=== PATIENT | female | born 1950 | race African-American/Black ===

== ENCOUNTER → 2017-05-20 | Outpatient (CLI) | payer MEDICARE ==
--- NOTE | 2017-05-20 18:33 | WOMENS IMAGING REPORT ---
EXAM DESCRIPTION: 3D SCREENING MAMMO BILAT COMPLETED DATE/TIME: 05/20/2017 12:54 pm REASON FOR STUDY: ROUTINE SCREENING; Z12.31 Z12.31 ENCNTR SCREEN MAMMOGRAM FOR MALIGNANT NEOPLASM O F TIGRE COMPARISON: Multiple since 2009 TECHNIQUE: Standard craniocaudal and mediolateral oblique views of each breast recorded using digita l acquisition and breast tomosynthesis. LIMITATIONS: None. FINDINGS: RIGHT BREAST MASSES: In the upper outer quadrant about 15 cm from the nipple, a 3 cm mammographic mass is present worrisome for malignancy. This requires further evaluation with cone compression views and ultrasoun d. There are borderline enlarged right axillary lymph nodes at the edge of the field of view. Ultra sound of the axilla should also be performed. CALCIFICATIONS: No new or suspicious calcifications. ARCHITECTURAL DISTORTION: None. DEVELOPING DENSITY: None. ASYMMETRY: None noted. OTHER: No other significant findings. LEFT BREAST MASSES: No suspicious masses. CALCIFICATIONS: No new or suspicious calcifications. ARCHITECTURAL DISTORTION: None. DEVELOPING DENSITY: None. ASYMMETRY: None noted. OTHER: No other significant findings. Read with the assistance of CAD. .[facility] - R2 Cenova Version 1.3 .[facility] Imaging - R2 Cenova Version 1.3 .[facility] Imaging - R2 Cenova Version 2.4 .[facility] - R2 Cenova Version 2.4 .[facility] - R2 Volumetric Weigher Version 9.2 IMPRESSION: Right breast mass far upper outer quadrant worrisome for malignancy. This requires furt her evaluation with cone compression views, 90 mediolateral view and right breast ultrasound. Ultra sound should also include the right axilla. BREAST DENSITY: b. There are scattered areas of fibroglandular density. BIRAD: 0 Incomplete: Needs Additional Imaging Evaluation and/or prior Mammograms for Comparison. RECOMMENDATION: RECOMMENDED FOLLOW-UP: Right breast diagnostic mammograms and ultrasound The patient will be contacted for additional imaging. COMMENT: The patient has been notified of the results by letter per MQSA requirements. Additional no tification policies are in place for contacting patient with suspicious or incomplete findings. Quality ID #225: The [employer] recommends an annual screening mammogram for women aged 40 years or over. This facility utilizes a reminder system to ensure that all patients receive reminder letters, and/or direct phone calls for appointments. This includes reminders for routine scr eening mammograms, diagnostic mammograms, or other Breast Imaging Interventions when appropriate. Th is patient will be placed in the appropriate reminder system. The [employer] (ACR) has developed recommendations for screening MRI of the breast s in certain patient populations, to be used in conjunction with mammography. Breast MRI surveillanc e may be appropriate for women with more than 20% lifetime risk of developing breast cancer as deter mined by genetic testing, significant family history of the disease, or history of mantle radiation f or Hodgkins Disease. ACR Practice Guidelines 2008. DBT Technology DBT is a type of tomographic mammography. With conventional mammography, overlapping breast tissue ma y make lesions difficult to detect, even with good compression. DBT uses an x-ray tube that rotates a round the breast, taking images at different angles. These images are then combined to create thin sl ices of the breast that the radiologist can view as a 3D reconstruction. The Stand In unit can perform full-field digital mammograms (2D imaging); or DBT (3D imaging); or both, in a combination mode that quickly performs both the mammogram and the tomosynthesis scan while the breast is still compressed. PQRS 6045F: Fluoroscopic imaging is not utilized for breast tomosynthesis. TECHNICAL DOCUMENTATION: FINDING NUMBER: (1) ASSESSMENT: (1) JOB ID: [id number] [employer]- All Rights Reserved
== END ==
LOC: WI 11:48
PROVIDERS: ATTEND Internal Medicine
DX: Z12.31 Encounter for screening mammogram for malignant neoplasm of breast (principal); N63.11 Unspecified lump in the right breast, upper outer quadrant
CPT/HCPCS: 77063; G0202; 77067

== ENCOUNTER → 2017-06-17 | Outpatient (CLI) | payer MEDICARE ==
--- NOTE | 2017-06-17 15:48 | WOMENS IMAGING REPORT ---
EXAM DESCRIPTION: RIGHT DIAGNOSTIC MAMMO W/CAD; U/S BREAST UNILAT LIMITED COMPLETED DATE/TIME: 06/17/2017 9:34 am; 06/17/2017 10:04 am REASON FOR STUDY: UNSPECIFIED LUMP; N63.11; RT BREAST; N63.11 N63.11 UNSPECIFIED LUMP IN THE RIGHT BREAST, UPPER OUTER GLENN COMPARISON: Multiple since 2007 TECHNIQUE: Cone compression craniocaudal and mediolateral oblique images of the breast recorded with digital acquisition. Additional right breast 90 mediolateral view and exaggerated craniocaudad view Right breast ultrasound was also performed LIMITATIONS: None. FINDINGS: BREAST: Right MASSES: In the right upper outer quadrant, a 5 x 4.5 x 2.5 cm mammographic mass is present with ill-d efined borders. This is subsequently shown at ultrasound to represent a solid mass, suspicious for m alignancy. CALCIFICATIONS: No new or suspicious calcifications. ARCHITECTURAL DISTORTION: None. DEVELOPING DENSITY: None. ASYMMETRY: None noted. OTHER: No other significant findings. Read with the assistance of CAD. .[facility] - R2 Cenova Version 1.3 .[facility] Imaging - R2 Cenova Version 1.3 .[facility] Imaging - R2 Cenova Version 2.4 .[facility] [place] [place] - R2 Cenova Version 2.4 .[facility] - R2 Precision Jig Grinder Version 9.2 Right breast ultrasound: In the far right upper outer quadrant, a 5 x 4.5 x 2.5 cm mass is present with internal color flow, i ll-defined margins highly suspicious for malignancy. Ultrasound-guided core biopsy, post biopsy clip placement follow-up two-view mammogram recommended. Right axilla was imaged, there are enlarged right axillary lymph nodes, 3 x 2 cm in size and 1.2 x 1. 3 cm in size. These are worrisome for malignant involvement IMPRESSION: Mass right upper outer quadrant breast with enlarged right axillary lymph nodes highly s uspicious for malignancy. Ultrasound-guided core biopsy of the mass and 1 of the lymph nodes in the axilla is recommended, with post biopsy follow-up two-view mammogram BREAST DENSITY: b. There are scattered areas of fibroglandular density. BIRAD: 5 Highly suggestive of malignancy. Appropriate action should be taken. RECOMMENDATION: RECOMMENDED FOLLOW UP: Right breast ultrasound-guided core biopsy of the mass in the upper outer quadrant and right axillary lymph nodes SPECIFIC INTERVENTION/IMAGING/CONSULTATION RECOMMENDED:As above COMMUNICATION:These results were discussed with the patient at the time of the encounter. She unders tands the need for right breast and axillary lymph node biopsy and is amenable to biopsy performed by me at [facility]. Dr. Mendez was also notified of these results COMMENT: The patient has been notified of the results by letter per SA requirements. Additional no tification policies are in place for contacting patient with suspicious or incomplete findings. Quality ID #225: The [employer] recommends an annual screening mammogram for women aged 40 years or over. This facility utilizes a reminder system to ensure that all patients receive reminder letters, and/or direct phone calls for appointments. This includes reminders for routine scr eening mammograms, diagnostic mammograms, or other Breast Imaging Interventions when appropriate. Th is patient will be placed in the appropriate reminder system. The [employer] (ACR) has developed recommendations for screening MRI of the breast s in certain patient populations, to be used in conjunction with mammography. Breast MRI surveillanc e may be appropriate for women with more than 20% lifetime risk of developing breast cancer as deter mined by genetic testing, significant family history of the disease, or history of mantle radiation f or Hodgkins Disease. ACR Practice Guidelines 2008. TECHNICAL DOCUMENTATION: FINDING NUMBER: (1) ASSESSMENT: (1) JOB ID: [id number] [employer]- All Rights Reserved
--- NOTE | 2017-06-17 15:48 | WOMENS IMAGING REPORT ---
EXAM DESCRIPTION: RIGHT DIAGNOSTIC MAMMO W/CAD; U/S BREAST UNILAT LIMITED COMPLETED DATE/TIME: 06/17/2017 9:34 am; 06/17/2017 10:04 am REASON FOR STUDY: UNSPECIFIED LUMP; N63.11; RT BREAST; N63.11 N63.11 UNSPECIFIED LUMP IN THE RIGHT BREAST, UPPER OUTER GLENN COMPARISON: Multiple since 2007 TECHNIQUE: Cone compression craniocaudal and mediolateral oblique images of the breast recorded with digital acquisition. Additional right breast 90 mediolateral view and exaggerated craniocaudad view Right breast ultrasound was also performed LIMITATIONS: None. FINDINGS: BREAST: Right MASSES: In the right upper outer quadrant, a 5 x 4.5 x 2.5 cm mammographic mass is present with ill-d efined borders. This is subsequently shown at ultrasound to represent a solid mass, suspicious for m alignancy. CALCIFICATIONS: No new or suspicious calcifications. ARCHITECTURAL DISTORTION: None. DEVELOPING DENSITY: None. ASYMMETRY: None noted. OTHER: No other significant findings. Read with the assistance of CAD. .[facility] - R2 Cenova Version 1.3 .[facility] Imaging - R2 Cenova Version 1.3 .[facility] Imaging - R2 Cenova Version 2.4 .[facility] - R2 Cenova Version 2.4 .[facility] - R2 Law Clerk Version 9.2 Right breast ultrasound: In the far right upper outer quadrant, a 5 x 4.5 x 2.5 cm mass is present with internal color flow, i ll-defined margins highly suspicious for malignancy. Ultrasound-guided core biopsy, post biopsy clip placement follow-up two-view mammogram recommended. Right axilla was imaged, there are enlarged right axillary lymph nodes, 3 x 2 cm in size and 1.2 x 1. 3 cm in size. These are worrisome for malignant involvement IMPRESSION: Mass right upper outer quadrant breast with enlarged right axillary lymph nodes highly s uspicious for malignancy. Ultrasound-guided core biopsy of the mass and 1 of the lymph nodes in the axilla is recommended, with post biopsy follow-up two-view mammogram BREAST DENSITY: b. There are scattered areas of fibroglandular density. BIRAD: 5 Highly suggestive of malignancy. Appropriate action should be taken. RECOMMENDATION: RECOMMENDED FOLLOW UP: Right breast ultrasound-guided core biopsy of the mass in the upper outer quadrant and right axillary lymph nodes SPECIFIC INTERVENTION/IMAGING/CONSULTATION RECOMMENDED:As above COMMUNICATION:These results were discussed with the patient at the time of the encounter. She unders tands the need for right breast and axillary lymph node biopsy and is amenable to biopsy performed by me at [facility]. Dr. Mendez was also notified of these results COMMENT: The patient has been notified of the results by letter per SA requirements. Additional no tification policies are in place for contacting patient with suspicious or incomplete findings. Quality ID #225: The [employer] recommends an annual screening mammogram for women aged 40 years or over. This facility utilizes a reminder system to ensure that all patients receive reminder letters, and/or direct phone calls for appointments. This includes reminders for routine scr eening mammograms, diagnostic mammograms, or other Breast Imaging Interventions when appropriate. Th is patient will be placed in the appropriate reminder system. The [employer] (ACR) has developed recommendations for screening MRI of the breast s in certain patient populations, to be used in conjunction with mammography. Breast MRI surveillanc e may be appropriate for women with more than 20% lifetime risk of developing breast cancer as deter mined by genetic testing, significant family history of the disease, or history of mantle radiation f or Hodgkins Disease. ACR Practice Guidelines 2008. TECHNICAL DOCUMENTATION: FINDING NUMBER: (1) ASSESSMENT: (1) JOB ID: [id number] [employer]- All Rights Reserved
== END ==
LOC: WI 08:52
PROVIDERS: ATTEND Internal Medicine
DX: N63.11 Unspecified lump in the right breast, upper outer quadrant (principal)
CPT/HCPCS: 76642

== ENCOUNTER → 2017-07-10 | Day surgery (SDC) | payer MEDICARE ==
[~2017-07-10] MED LIST: LIDOCAINE 2% INJ (20 MG/ML) 20 ML MDV ONE
--- NOTE | 2017-07-21 08:39 | WOMENS IMAGING REPORT ---
EXAM DESCRIPTION: U/S BREAST BX; RIGHT DIG DX MAMMO NO CHG; U/S BREAST BX EACH ADDT'L COMPLETED DATE/TIME: 07/10/2017 2:24 pm; 07/10/2017 2:09 pm; 07/10/2017 2:25 pm REASON FOR STUDY: RIGHT BREAST LUMP; S/P US RIGHT BREAST AND AXILLA FOR CLIP PLACEMENT; TWO BIOPSY S ITES N63.10 UNSPECIFIED LUMP IN THE RIGHT BREAST, UNSPECIFIED GLENN N63.11 UNSPECIFIED LUMP IN THE RI GHT BREAST, UPPER OUTER GLENN COMPARISON: Multiple since 2014 TECHNIQUE: The procedure was discussed with the patient and the patient agreed to proceed. Patient has a dominant mass in the right upper outer quadrant as well as an enlarged right axillary lymph nod e. Both areas were sampled. Right axillary lymph node: The patient was scanned and the area of interest in the right axilla. This correlates with the area of concern on prior imaging studies. This area was targeted for ultrasound-guided core biopsy. After sterile skin prep and 2.0 mL local lidocaine 1% for skin and deep tissue anesthesia, a 14 gauge coaxial core biopsy needle was used to obtain several cores of tissue from the lesion. Under ultras ound guidance, a ribbon clip was placed in the areas sampled. There were no immediate post-procedure complications. Right upper-outer quadrant mass: The patient was scanned and the area of interest in the upper outer quadrant right breast. This layo elates with the area of concern on prior imaging studies. This area was targeted for ultrasound-guide d core biopsy. After sterile skin prep and 2.0 mL local lidocaine 1% for skin and deep tissue anesthesia, a 14 gauge coaxial core biopsy needle was used to obtain several cores of tissue from the lesion. Under ultras ound guidance, a ribbon clip was placed in the areas sampled. There were no immediate post-procedure complications. MAMMOGRAM: Post-procedure two view mammogram was acquired in the digital mammogram suite. The clips w ere in the expected location. No significant hematoma. Pathology yields a diagnosis of invasive ductal carcinoma in the upper outer quadrant primary breast mass, metastatic ductal carcinoma in the right axillary lymph node sampled. Pathology is concordant. LIMITATIONS: None. FINDINGS: Ultrasound guided breast biopsy as described above. POST PROCEDURE MAMMOGRAMS FOR MARKER PLACEMENT: Yes IMPRESSION: ULTRASOUND-GUIDED CORE BIOPSY OF THE RIGHT BREAST YIELDS A DIAGNOSIS OF INVASIVE DUCTAL CARCINOMA AND A DOMINANT MASS RIGHT UPPER OUTER QUADRANT AND IN AN ENLARGED RIGHT AXILLARY LYMPH NODE . BI-RADS 6 Known biopsy-proven malignancy. Appropriate action should be taken. COMMENT: COMMUNICATION: THESE RESULTS WERE DISCUSSED WITH THE PATIENT 07/15/2017, 1600 HOURS. SHE UN DERSTANDS THIS IS A MALIGNANT DIAGNOSIS. PATIENT'S PRIMARY PHYSICIAN WAS ALSO NOTIFIED. Patient medication list reviewed: Yes- Quality ID# [id number]:Eligible professional attests to documenting i n the medical record they obtained, updated, or reviewed the patient's current medications. TECHNICAL DOCUMENTATION: JOB ID: [id number] [employer]- All Rights Reserved
== END ==
LOC: WI 12:59
PROVIDERS: ATTEND Internal Medicine
PROC: 0HBT3ZX Excision of Right Breast, Percutaneous Approach, Diagnostic (ICD-10-PCS; principal; 2017-07-10)
DX: C50.411 Malignant neoplasm of upper-outer quadrant of right female breast (principal); C77.3 Secondary and unspecified malignant neoplasm of axilla and upper limb lymph nodes
CPT/HCPCS: 88342 ×2; 88341 ×2; 88305 ×2; 19083; 19084; J3490

== ENCOUNTER → 2017-07-27 | Outpatient (CLI) | payer MEDICARE ==
--- NOTE | 2017-07-27 10:42 | RADIOLOGY REPORT (SQ) ---
EXAM DESCRIPTION: CT CHEST WITH; CT ABD/PELVIS WITH IV ONLY COMPLETED DATE/TIME: 07/27/2017 9:12 am REASON FOR STUDY: BREAST CA (C50.411) C50.411 MALIG NEOPLM OF UPPER-OUTER QUADRANT OF RIGHT FEMALE COMPARISON: CT angio chest 12/28/2012 Right breast ultrasound-guided biopsy 07/10/2017 CONTRAST TYPE AND DOSE: contrast/concentration: Isovue 370.00 mg/ml; Total Contrast Delivered: 100.0 ml; Total Saline Delivered: 72.0 ml RENAL FUNCTION: Creatinine 0.9 TECHNIQUE: CT scan of the chest performed using helical scanning technique with dynamic intravenous contrast injection. Images reviewed with lung, soft tissue and bone windows. Reconstructed coronal a nd sagittal MPR images reviewed. All images stored on PACS. CT scan of the abdomen and pelvis performed with intravenous and without oral contrastusing helical s gisella technique with dynamic intravenous contrast injection. Images reviewed with lung, soft tissu e and bone windows. Reconstructed coronal and sagittal MPR images reviewed. Delayed images for eval uation of the urinary system also acquired and evaluated. All images stored on PACS. All CT scanners at this facility use dose modulation, iterative reconstruction, and/or weight based d osing when appropriate to reduce radiation dose to as low as reasonably achievable (ALARA). [facility]: Dose Right [facility]: CareDose [facility]: Dose Right [facility]: Teradose 4D [facility]: Smart Vacation View RADIATION DOSE: CT Rad equipment meets quality standard of care and radiation dose reduction techniq ues were employed. CTDIvol: 20.6 - 29.7 mGy. DLP: 3731 mGy-cm. . LIMITATIONS: None. FINDINGS: CHEST: LUNGS AND PLEURA: Minimal bandlike scarring is present in the lingula and left lower lobe. Benign fo sandhya pleural thickening along the right minor fissure 4 mm in diameter axial image 63, of doubtful cli nical significance. No worrisome pulmonary nodules. No pleural effusion. No pneumothorax. HILAR AND MEDIASTINAL STRUCTURES: No identified masses or abnormal nodes. HEART AND VASCULAR STRUCTURES: No aneurysm or dissection. No central pulmonary emboli. No pericardi al effusion. HARDWARE: None. THYROID AND OTHER SOFT TISSUES: This thyroiditis is grossly unremarkable. Previously biopsied right lateral breast mass at the edge of the field of view on axial image 21. Th ere are enlarged right axillary lymph nodes 1 of which contains a biopsy clip and was shown to repres ent metastatic breast cancer. Largest lymph nodes are as follows: 3.2 cm diameter axial image 6 3.3 cm diameter axial image 11 2.2 cm diameter axial image 13 BONES: No significant finding. OTHER: No other significant finding. ABDOMEN AND PELVIS: LIVER: Normal size. No masses. No dilated ducts. SPLEEN: Normal size. No focal lesions. PANCREAS: No masses. No significant calcifications. No adjacent inflammation or peripancreatic fluid collections. Pancreatic duct not dilated. GALLBLADDER: Surgically absent ADRENAL GLANDS: No significant masses or asymmetry. RIGHT KIDNEY AND URETER: No solid masses. No significant calcification. No hydronephrosis or hydroure ter. LEFT KIDNEY AND URETER: No solid masses. No significant calcification. No hydronephrosis or hydrouret er. AORTA AND VESSELS: No aneurysm. No dissection. Renal arteries, SMA, celiac without stenosis. RETROPERITONEUM: No retroperitoneal adenopathy, hemorrhage or masses. BOWEL AND PERITONEAL CAVITY: No masses or inflammatory changes. No free fluid or peritoneal masses. APPENDIX: Not identified. No right lower quadrant inflammatory change ABDOMINAL WALL: No masses. No hernias. PELVIS: No mass or free fluid. Normal bladder. Fibroid uterus. Ovaries not enlarged. BONES: No significant or acute findings. OTHER: No other significant finding. IMPRESSION: Right lateral previously biopsied malignant breast mass with malignant right axillary ad enopathy. No CT evidence of metastatic disease to the abdomen or pelvis TECHNICAL DOCUMENTATION: JOB ID: [id number] Quality ID # [id number]: Final reports with documentation of one or more dose reduction techniques (e.g., Au tomated exposure control, adjustment of the mA and/or kV according to patient size, use of iterative reconstruction technique) 2010 [employer]- All Rights Reserved Reading location - IP/workstation name: [email or web address]
== END ==
LOC: RAD 08:24
PROVIDERS: ATTEND Internal Medicine Hematology & Oncology
DX: C50.411 Malignant neoplasm of upper-outer quadrant of right female breast (principal)
CPT/HCPCS: 71260; 74177; 82565

== ENCOUNTER → 2017-08-06 | Outpatient (CLI) | payer MEDICAID, MEDICARE ==
--- NOTE | 2017-08-07 14:37 | RADIOLOGY REPORT (SQ) ---
EXAM DESCRIPTION: NM MUGA REST COMPLETED DATE/TIME: 08/07/2017 2:27 pm REASON FOR STUDY: ENCTR FOR F/U EXAM AFTER COMPLETED TX FOR MALIGNANT CARLOTA (Z08), ENCTR FOR SC Z08 E NCNTR FOR FOLLOW-UP EXAM AFTER TRTMT FOR MALIGNANT NEOP COMPARISON: None. RADIONUCLIDE AND DOSE: 26.6 mCi technetium 99 M pyrophosphate. The route of agent administration: Intravenous TECHNIQUE: Following administration of the radionuclide, gated images of the heart are obtained. LIMITATIONS: The injection infiltrated and images are nondiagnostic. FINDINGS: Nondiagnostic images. IMPRESSION: Nondiagnostic study due to infiltration of the radiopharmaceutical. The study will be r epeated. TECHNICAL DOCUMENTATION: JOB ID: [id number] [employer]- All Rights Reserved Reading location - IP/workstation name: [email or web address]
== END ==
LOC: RAD 13:28
PROVIDERS: ATTEND Internal Medicine Hematology & Oncology
DX: Z13.6 Encounter for screening for cardiovascular disorders (principal); Z08 Encounter for follow-up examination after completed treatment for malignant neoplasm
CPT/HCPCS: 78472

== ENCOUNTER → 2017-08-11 | Outpatient (CLI) | payer MEDICAID, MEDICARE ==
--- NOTE | 2017-08-11 16:12 | RADIOLOGY REPORT (SQ) ---
EXAM DESCRIPTION: NM MUGA REST COMPLETED DATE/TIME: 08/11/2017 3:26 pm REASON FOR STUDY: ENCOUNTER FOR FOLLOW UP AFTER TREATMENT FOR MAL CARLOTA Z51.11 ENCOUNTER FOR ANTINEOP LASTIC CHEMOTHERAPY Z08 ENCNTR FOR FOLLOW-UP EXAM AFTER TRTMT FOR MALIGNANT NEOP COMPARISON: None. RADIONUCLIDE AND DOSE: 25.7 mCi technetium 99 M labeled red blood cells. The route of agent administration: Intravenous TECHNIQUE: Following administration of the radionuclide, gated images of the heart are obtained in t hree projections. Left ventricular functional analysis performed. LIMITATIONS: None. FINDINGS: LEFT VENTRICULAR FUNCTION: EJECTION FRACTION: 79%. END-DIASTOLIC VOLUME: 44 mL. END-SYSTOLIC VOLUME: 9 mL. WALL MOTION: No focal wall motion abnormalities. OTHER: No other significant finding. IMPRESSION: NORMAL CARDIAC MUGA STUDY. NORMAL LEFT VENTRICULAR FUNCTION WITH VALUES ABOVE. TECHNICAL DOCUMENTATION: JOB ID: [id number] [employer]- All Rights Reserved Reading location - IP/workstation name: [email or web address]
== END ==
LOC: RAD 13:37
PROVIDERS: ATTEND Internal Medicine Hematology & Oncology
DX: Z08 Encounter for follow-up examination after completed treatment for malignant neoplasm (principal); Z92.21 Personal history of antineoplastic chemotherapy; Z79.899 Other long term (current) drug therapy
CPT/HCPCS: 78472; A9560; Q9969

== ENCOUNTER → 2017-08-13 | Outpatient (CLI) | payer MEDICARE, MEDICAID ==
[~2017-08-13] MED LIST changes: +LIDOCAINE 1%/EPINEPHRINE INJ 20 ML VIAL ONE; -LIDOCAINE 2% INJ (20 MG/ML) 20 ML MDV ONE
--- NOTE | 2017-08-13 16:39 | XCELERA REPORT ---
[address] [address] Upper Extremity Venous Evaluation Name: CONNIE DE ANDA Age: 67 yrs Gender: Female : 1950 Patient Status: Outpatient Patient Location: Study Date: 08/13/2017 11:29 AM Procedure: Unilateral duplex scan of the right upper extremity veins was performed, including responses to compression and other maneuvers. Reason For Study: RUE SWELLING Ordering Physician: EMMANUELLE GAY Performed By: Sidney Jolly Right Side Venous Evaluation Multiple lymph nodes in upper right arm noted. Normal vessel filling wall to wall, compression and augmentation as well as Colour flow down to the forearm veins. Interpretation Summary Normal compression, patency, spontaneous and phasic flow of the right upper extremity veins. : EMMANUELLE GAY > Victorino Hess
== END ==
LOC: SP 11:04
PROVIDERS: ATTEND Internal Medicine Hematology & Oncology
DX: M79.89 Other specified soft tissue disorders (principal); I82.449 Acute embolism and thrombosis of unspecified tibial vein
CPT/HCPCS: 93971

== ENCOUNTER 2017-08-17 09:13 | Day surgery (SDC) | payer MEDICARE, MEDICAID ==
[~2017-08-17 09:13] MED LIST changes: +ACETAMINOPHEN 325 MG TABLET PO PRN; +CEFAZOLIN 1 GM/D5W RTU 1 GM/50 ML RTUPB IV PRN
[2017-08-17 09:52] LABS: HEMATOCRIT 39.9 % (36.0-47.0); HEMOGLOBIN 13.3 g/dL (12.0-15.5); MEAN CORPUSCULAR HEMOGLOBIN 29.1 pg (27.0-33.4); MEAN CORPUSCULAR HGB CONC 33.4 g/dL (32.0-36.0); MEAN CORPUSCULAR VOLUME 87 fl (80-97); PLATELET COUNT 227 10^3/uL (150-450); RED BLOOD COUNT 4.57 10^6/uL (3.72-5.28); RED CELL DISTRIBUTION WIDTH 14.1 % (11.5-14.0); WHITE BLOOD COUNT 5.7 10^3/uL (4.0-10.5)
[2017-08-17 10:10] LABS: POTASSIUM 3.8 mmol/L (3.6-5.0)
[2017-08-17] MEDS ORDERED: KETAMINE HCL INJ 500 MG/10 ML VIAL ONE (11:30)
[2017-08-17] MEDS ORDERED: LIDOCAINE 2% INJ-PF (20 MG/ML) 10 ML AMPUL ONE (11:30)
[2017-08-17] MEDS ORDERED: FENTANYL CITRATE INJ/PF 100 MCG/2 ML AMPUL ONE (11:30)
[2017-08-17] MEDS ORDERED: MIDAZOLAM 2 MG/2 ML INJ ONE (11:31)
[2017-08-17] MEDS ORDERED: PROPOFOL INJ 200 MG/20 ML VIAL IV ONE (11:31)
[2017-08-17] MEDS ORDERED: ONDANSETRON HCL INJ/PF 4 MG/2 ML SDV ONE (11:31)
[2017-08-17] MEDS ORDERED: OXYCODONE-ACETAMINOPHEN 5-325 MG TABLET PO PRN ×2 (12:12)
[2017-08-17] MEDS ORDERED: PROMETHAZINE HCL INJ 25 MG/1 ML VIAL IV PRN ×2 (12:12)
[2017-08-17] MEDS ORDERED: DIPHENHYDRAMINE HCL 50 MG/ML VIAL IV PRN (12:12)
[2017-08-17] MEDS ORDERED: MEPERIDINE HCL/PF INJ 25 MG/1 ML DISP.SYRIN IV PRN (12:12)
[2017-08-17] MEDS ORDERED: MORPHINE SULFATE 10 MG/ML INJ IV PRN (12:12)
[2017-08-17] MEDS ORDERED: FENTANYL CITRATE INJ/PF 100 MCG/2 ML AMPUL IV PRN ×3 (12:12)
[2017-08-17] MEDS ORDERED: LIDOCAINE 1%/EPINEPHRINE INJ 20 ML VIAL ONE (12:18)
[2017-08-17] MEDS ORDERED: PROMETHAZINE HCL INJ 25 MG/1 ML VIAL ONE (13:00)
--- NOTE | 2017-08-17 13:06 | RADIOLOGY REPORT (SQ) ---
EXAM DESCRIPTION: FLUORO/CV PLACEMENT COMPLETED DATE/TIME: 08/17/2017 12:47 pm REASON FOR STUDY: LEFT SIDED PORTACATH C50.411 MALIG NEOPLM OF UPPER-OUTER QUADRANT OF RIGHT FEMALE Z79.899 OTHER HALFWAY (CURRENT) DRUG THERAPY COMPARISON: None. FLUOROSCOPY TIME: 0.8 minutes 4 images saved to PACS. TECHNIQUE: Intra-operative images acquired during surgical procedure to evaluate progress. NUMBER OF IMAGES: 4 image LIMITATIONS: None. FINDINGS: Fluoroscopic images were obtained during positioning of a left-sided Port-A-Cath. The tip of the Port-A-Cath is identified at the level of the junction of subclavian veins. IMPRESSION: IMAGE(S) OBTAINED DURING PROCEDURE. COMMENT: Quality ID [id number]: Final reports for procedures using fluoroscopy that document radiation exp osure indices, or exposure time and number of fluorographic images (if radiation exposure indices are not available) Please consult full operative report of the attending physician for description of the procedure. TECHNICAL DOCUMENTATION: JOB ID: [id number] [employer]- All Rights Reserved Reading location - IP/workstation name: [email or web address]
--- NOTE | 2017-08-17 13:39 | Discharge Summary ---
Discharge Summary (SDC) - Discharge Final Diagnosis: Metastatic breast carcinoma Date of Surgery: 08/17/17 Discharge Date: 08/17/17 Condition: Good Forms: ASU Anesthesia D/C Instruction, Discharge POC-Surgical Service Treatment or Instructions: May use port; may shower in 48 hours; take Tylenol Motrin as needed pain. Referrals: TOMASA DUNCAN MD [ACTIVE STAFF] - 08/27/17 1:00 pm Discharge Diet: Regular Discharge Activity: Activity As Tolerated Home Care Assistance: None Needed Report the Following to Your Physician Immediately: Shortness of Breath, Increase in Pain, Fever over 101 Degrees
--- NOTE | 2017-08-17 13:41 | RADIOLOGY REPORT (SQ) ---
EXAM DESCRIPTION: CHEST SINGLE VIEW COMPLETED DATE/TIME: 08/17/2017 1:12 pm REASON FOR STUDY: PORT-A-CATH COMPARISON: None. EXAM PARAMETERS: NUMBER OF VIEWS: One view. TECHNIQUE: Single frontal radiographic view of the chest acquired. RADIATION DOSE: NA LIMITATIONS: None. FINDINGS: LUNGS AND PLEURA: No opacities, masses or pneumothorax. No pleural effusion. MEDIASTINUM AND HILAR STRUCTURES: No masses. Contour normal. HEART AND VASCULAR STRUCTURES: Heart normal in size. Normal vasculature. BONES: No acute findings. HARDWARE: left-sided permanent central line tip in the distal left brachiocephalic vein/ superior raul a cava. OTHER: No other significant finding. IMPRESSION: No pneumothorax post left central line placement TECHNICAL DOCUMENTATION: JOB ID: [id number] [employer]- All Rights Reserved Reading location - IP/workstation name: [email or web address]
--- NOTE | 2017-08-17 13:44 | Operative Report ---
Operative Report DATE OF SURGERY: 08/17/17 PREOPERATIVE DIAGNOSIS: 1. Metastatic breast carcinoma. 2. Obesity POSTOPERATIVE DIAGNOSIS: Same OPERATION: 1. Ultrasound directed insertion of left internal jugular vein central venous single lumen port catheter with port in left subclavian position. 2. Interpretation of intraoperative fluoroscopy. 3. Interpretation of postoperative chest x-ray SURGEON: TOMASA DUNCAN ANESTHESIA: LMAC TISSUE REMOVED OR ALTERED: None COMPLICATIONS: None ESTIMATED BLOOD LOSS: Minimal INTRAOPERATIVE FINDINGS: See below PROCEDURE: The patient was taken to the main operating room from ambulatory surgery where LMAC anesthesia was induced. Arms tucked to the patient's side head tilted to the right, left neck chest wall prepped and draped in sterile fashion with breast taped in a caudad direction Surgical plan and surgical timeout conducted Skin was anesthetized 1% plain lidocaine. Using Seldinger technique, a needle and wire were threaded into the left internal jugular vein. There was no evidence of ectopy. A suitable site for placement of the port was chosen in the left subclavian position. The skin was anesthetized with 1% plain lidocaine, a 3 m incision made with a knife, port pocket developed large enough to accommodate the single- chamber port. The catheter was then trimmed to the appropriate length, tunneled between the 2 incisions, attached to the port with the plastic ring and the port tucked into the pocket. The micro was switched over to a Glidewire using the introducer sheath. We then threaded the dilator introducer sheath, 9 Chinese over a Glidewire and the Glidewire was removed along with dilator. The catheter was threaded into the strip away sheath, the strip away sheath was removed leaving the catheter with the tip at the junction between the innominate vein and the superior vena cava. There was no evidence of ectopy. There is no kinking of the catheter at the level of the neck. Report was aspirated and flushed with heparinized saline. Wounds closed with 3- 0 Vicryl suture benzoin and Steri-Strips. Patient tolerated the procedure well. She was taken to the recovery room in stable condition. Postoperatively a portable upright chest x-ray was obtained which showed no evidence of pneumothorax, and catheter in good position with no kinking. Thereafter she was taken to the ambulatory area in stable condition
[2017-08-17 14:38] VITALS: BP 151/81
== END 2017-08-17 14:45 | disposition home or self-care (01) ==
LOC: OROUT 09:13
PROVIDERS: ATTEND Surgery
PROC: 05HN33Z Insertion of Infusion Device into Left Internal Jugular Vein, Percutaneous Approach (ICD-10-PCS; principal; 2017-08-17 11:00)
DX: C79.81 Secondary malignant neoplasm of breast (principal); E11.9 Type 2 diabetes mellitus without complications; I10 Essential (primary) hypertension; E03.9 Hypothyroidism, unspecified; E66.9 Obesity, unspecified; Z79.899 Other long term (current) drug therapy; Z79.82 Long term (current) use of aspirin; Z79.84 Long term (current) use of oral hypoglycemic drugs; Z79.1 Long term (current) use of non-steroidal anti-inflammatories (NSAID); Z68.42 Body mass index [BMI] 45.0-49.9, adult
CPT/HCPCS: 36561; 36415; 82947; 84132; 85027; 71045; 77001; C1769; C1752; C1788; J2250; J0690; J3010; J3490 ×3; J2550; J2405; J2704; J1642; 532

== ENCOUNTER → 2017-08-21 | Outpatient (CLI) | payer MEDICAID, MEDICARE ==
--- NOTE | 2017-08-21 16:27 | RADIOLOGY REPORT (SQ) ---
EXAM DESCRIPTION: NM WHOLE BODY BONE SCAN COMPLETED DATE/TIME: 08/21/2017 2:22 pm REASON FOR STUDY: MALIG NEOPLM OF UPPER-OUTER QUADRANT OF RIGHT FEMALE BREAST C50.411 MALIG NEOPLM OF UPPER-OUTER QUADRANT OF RIGHT FEMALE COMPARISON: CT of the chest and CT of the abdomen and pelvis dated 07/27/2017 RADIONUCLIDE AND DOSE: 20 millicuries Tc99m HDP. The route of agent administration: Intravenous. ADDITIONAL DRUGS AND DOSES: None. TECHNIQUE: Routine delayed images at 3 hours post radionuclide injection acquired of the bony skelet on including anterior and posterior whole-body projections and additional focused images as needed. LIMITATIONS: None. FINDINGS: BONES: There is mild uptake in the shoulders,, left hip, left knee, right sacroiliac joint , and in the ankles. There is no further abnormal skeletal uptake. KIDNEYS: Symmetric excretion without obstruction. OTHER: No other significant finding. IMPRESSION: There are areas of increased uptake generally felt to be degenerative. The most promine nt areas of uptake in the right sacroiliac joint and in the left hip show clear degenerative joint ch anges in the hip. There is mild sclerosis on both sides of the sacroiliac joint on the right suggest ing sacroiliitis. No osseous metastases are seen in right side of the sacrum on CT. COMMENT: Quality measure 147: Current bone scan is compared with any available plain radiographs, p rior bone scans, and CT/MRI. TECHNICAL DOCUMENTATION: JOB ID: [id number] [employer]- All Rights Reserved Reading location - IP/workstation name: [email or web address]
== END ==
LOC: RAD 09:36
PROVIDERS: ATTEND Internal Medicine Hematology & Oncology
DX: C50.411 Malignant neoplasm of upper-outer quadrant of right female breast (principal)
CPT/HCPCS: 78306; A9561; Q9969

== ENCOUNTER 2017-09-11 12:53 | Outpatient (CLI) | payer MEDICARE ==
[~2017-09-11 12:53] MED LIST changes: -ACETAMINOPHEN 325 MG TABLET PO PRN; -CEFAZOLIN 1 GM/D5W RTU 1 GM/50 ML RTUPB IV PRN; -LIDOCAINE 1%/EPINEPHRINE INJ 20 ML VIAL ONE; +NORMAL SALINE 1000 ML 1,000 ML IV PRN; +ONDANSETRON HCL INJ/PF 4 MG/2 ML SDV IV PRN
[2017-09-11 14:10] VITALS: BP 135/71
== END 2017-09-11 14:26 | disposition home or self-care (01) ==
LOC: II 12:53 → 5TH 13:01 → II 14:26
PROVIDERS: ATTEND Internal Medicine
PROC: 3E0437Z Introduction of Electrolytic and Water Balance Substance into Central Vein, Percutaneous Approach (ICD-10-PCS; principal; 2017-09-11)
PROC: 3E043GC Introduction of Other Therapeutic Substance into Central Vein, Percutaneous Approach (ICD-10-PCS; 2017-09-11)
DX: E86.0 Dehydration (principal); R11.0 Nausea
CPT/HCPCS: 96375; 96360; J2405; 96361; 96374

== ENCOUNTER 2017-09-15 08:48 | Outpatient (CLI) | payer MEDICARE, MEDICAID ==
[2017-09-15 09:57] VITALS: BP 108/64
== END 2017-09-15 10:19 | disposition home or self-care (01) ==
LOC: II 08:48 → 5TH 09:00 → II 10:19
PROVIDERS: ATTEND Internal Medicine
PROC: 3E043GC Introduction of Other Therapeutic Substance into Central Vein, Percutaneous Approach (ICD-10-PCS; principal; 2017-09-15)
PROC: 3E0437Z Introduction of Electrolytic and Water Balance Substance into Central Vein, Percutaneous Approach (ICD-10-PCS; 2017-09-15)
DX: E86.0 Dehydration (principal); R11.0 Nausea
CPT/HCPCS: 96374; 96375; 96360; J2405; 96361

== ENCOUNTER 2017-11-04 16:54 | Inpatient (IN) | payer MEDICARE, MEDICAID ==
[2017-11-04] MEDS ORDERED: PROMETHAZINE HCL 25 MG TABLET PO PRN (17:40)
[2017-11-04] MEDS ORDERED: ONDANSETRON HCL INJ/PF 4 MG/2 ML SDV IV PRN (17:40)
[2017-11-04] MEDS ORDERED: TEMAZEPAM 7.5 MG CAPSULE PO PRN (17:40)
[2017-11-04] MEDS ORDERED: HYDRALAZINE HCL INJ/PF 20 MG/1 ML SDV IV PRN (18:05)
[2017-11-04] MEDS ORDERED: DEXTROSE 40% GEL 15 GM TUBE PO PRN ×2 (18:08)
[2017-11-04] MEDS ORDERED: DEXTROSE 50%-WATER 25 GM/50 ML DISP.SYRIN IV PRN ×2 (18:08)
[2017-11-04] MEDS ORDERED: GLUCAGON,HUMAN RECOMB 1 MG INJ IM PRN (18:08)
[2017-11-04] MEDS ORDERED: INSULIN REG, HUMAN 100 UNIT/ML 3 ML VIAL (PYX) SUBCUT PRN (18:08)
--- NOTE | 2017-11-04 18:08 | PDOC H&P ---
History of Present Illness Admission Date/PCP: 11/04/17 16:54 EMMANUELLE BRAGG MD Primary CARE physician: Dr. Mendez Patient complains of: Weakness History of Present Illness: CONNIE DE ANDA is a 67 year old female who was at her oncologist office for a checkup. Her past medical history is significant for type 2 diabetes mellitus and hypertension. She currently is undergoing treatment for HER-2 positive breast cancer directed by Dr. Tobar. She just completed cycle 4 of therapy on October 28, 2017. At her physician's office today she was found to have a white blood cell count of 0.1 and ANC was 0.0. The patient's hemoglobin was stable at 9.8 and her platelet level was 69. Potassium in the office was 3.1 and magnesium level was 0 point 7. The patient has a yeast infection in the skin folds in her groin and under her pannus. Dr. Tobar requested the hospitalist to directly admit her to the hospital for IV fluids and repletion of her electrolytes and close monitoring in the event that the patient begins to run a fever. Currently the patient is afebrile. When the patient arrived to the hospital she states she just feels weak. She has had no fever or shaking chills. She is not nauseated at this point. She has no vomiting. No abdominal pain but continues to have diarrhea from the recent chemotherapy. She has no dysuria, frequency or hematuria at this point. Past Medical History Cardiac Medical History: Reports: Hypertension Denies: Coronary Artery Disease, Myocardial Infarction Pulmonary Medical History: Denies: Asthma, Bronchitis, Chronic Obstructive Pulmonary Disease (COPD), Pneumonia EENT Medical History: Reports: None Neurological Medical History: Denies: Seizures Endocrine Medical History: Reports: Diabetes Mellitus Type 2, Obesity Renal/ Medical History: Reports: None Malignancy Medical History: Reports: None Malignancy History Note: Patient has known HER-2 positive breast cancer GI Medical History: Reports: Gastroesophageal Reflux Disease Musculoskeltal Medical History: Reports: Arthritis Skin Medical History: Reports: None Psychiatric Medical History: Reports: None Traumatic Medical History: Reports: None Hematology: Reports: Neutropenia Denies: Anemia Past Surgical History Past Surgical History: Denies: Pacemaker Social History Lives with: Family Smoking Status: Never Smoker Frequency of Alcohol Use: None Hx Recreational Drug Use: No Drugs: None Hx Prescription Drug Abuse: No - Advance Directive Resuscitation Status: Full Code Family History Family History: Malignancy Parental Family History Reviewed: Yes Children Family History Reviewed: Yes Sibling(s) Family History Reviewed.: Yes Medication/Allergy Home Medications: Acetaminophen/Chlorpheniramine [Coricidin Cold & Flu Tablet] 1 tab PO PRN PRN Chlorthalidone [Chlorthalidone 25 mg Tablet] 1 tab PO DAILY 07/31/17 Desipramine HCl 50 mg PO DAILY 07/31/17 Levothyroxine Sodium 125 mcg PO DAILY 07/31/17 Losartan Potassium 100 mg PO DAILY 07/31/17 Metformin HCl 1,000 mg PO DAILY 07/31/17 Naproxen Sodium 220 mg PO PRN PRN 07/31/17 Nebivolol HCl [Bystolic] 10 mg PO DAILY 07/31/17 Omeprazole 20 mg PO DAILY 07/31/17 Pregabalin [Lyrica 50 Mg Capsule] 50 mg PO DAILY 07/31/17 Allergies/Adverse Reactions: adhesive tape Allergy (Verified 07/31/17 15:57) RASH, SKIN IRRITATION Review of Systems Constitutional: PRESENT: anorexia, weakness. ABSENT: chills, fever(s) Eyes: ABSENT: visual disturbances Ears: ABSENT: hearing changes Nose, Mouth, and Throat: ABSENT: headache(s), mouth pain, sore throat Cardiovascular: ABSENT: chest pain, dyspnea on exertion, orthropnea, palpitations Respiratory: ABSENT: cough, dyspnea, sputum Gastrointestinal: PRESENT: diarrhea, nausea. ABSENT: abdominal pain, bloating, constipation, heartburn, vomiting Musculoskeletal: ABSENT: back pain Integumentary: ABSENT: lesions, rash Neurological: ABSENT: abnormal gait, abnormal speech, confusion, dizziness, focal weakness, syncope Psychiatric: ABSENT: anxiety, depression, homidical ideation, suicidal ideation Endocrine: ABSENT: cold intolerance, heat intolerance, polydipsia, polyuria Hematologic/Lymphatic: ABSENT: easy bleeding, easy bruising Physical Exam General appearance: PRESENT: no acute distress, obese, well-developed, well- nourished, other - She is in no acute distress but looks as if she does not feel well Head exam: PRESENT: atraumatic, normocephalic Eye exam: PRESENT: conjunctiva pink, EOMI, PERRLA. ABSENT: scleral icterus Mouth exam: PRESENT: moist, tongue midline Neck exam: ABSENT: carotid bruit, JVD, lymphadenopathy, thyromegaly Respiratory exam: PRESENT: clear to auscultation elmer. ABSENT: rales, rhonchi, wheezes Cardiovascular exam: PRESENT: RRR. ABSENT: diastolic murmur, rubs, systolic murmur GI/Abdominal exam: PRESENT: normal bowel sounds, soft, other - She does have evidence of yeast infection under her pannus and in her skin folds of her groin. ABSENT: distended, guarding, mass, organolmegaly, rebound, tenderness Rectal exam: PRESENT: deferred Extremities exam: PRESENT: full ROM. ABSENT: calf tenderness, clubbing, pedal edema Musculoskeletal exam: PRESENT: ambulatory Neurological exam: PRESENT: alert, awake, oriented to person, oriented to place , oriented to time, oriented to situation, CN II-XII grossly intact. ABSENT: motor sensory deficit Psychiatric exam: PRESENT: appropriate affect, normal mood. ABSENT: homicidal ideation, suicidal ideation Skin exam: PRESENT: other - Evidence of yeast in the skin folds of her groin and under her pannus Assessment & Plan - Diagnosis (1) Neutropenia Is this a current diagnosis for this admission?: Yes Plan: The patient has pancytopenia with severe neutropenia due to recent chemotherapy. The patient's ANC at Dr. Tobar's office was 0.0. We are going to support her through the jaun of her treatment for the next day or so here in the hospital and watch her closely for any sign of developing fever. We are going to treat her underlying yeast infection. I am going to recheck a CBC in the morning. (2) Breast cancer Is this a current diagnosis for this admission?: Yes Plan: She has completed cycle for of therapy on October 28, 2017. Her chemotherapy as directed by Dr. Bragg. Currently in the jaun of her therapy. (3) Luci infection Is this a current diagnosis for this admission?: Yes Plan: At the recommendation of her oncologist am going to place her on 100 mg of Diflucan p.o. daily for 3 days. I also will add some nystatin powder as well. (4) Dehydration Is this a current diagnosis for this admission?: Yes Plan: I am going to start the patient on normal saline with 20 mEq of potassium at 100 cc an hour. She will have further labs drawn tomorrow. Will obtain labs this evening as well as in the morning. (6) Diabetes mellitus Qualifiers: Diabetes mellitus type: type 2 Is this a current diagnosis for this admission?: Yes Plan: Currently we will hold the patient's metformin here in the hospital. I will place her on sliding scale coverage before meals at bedtime. (7) Hypertension Plan: I do not have any vitals yet on the patient. For now we will continue her home regimen. Her medications will need to be reconciled as soon as they get put in the computer. She will also have IV hydralazine available for severe hypertension. (8) Hypokalemia Is this a current diagnosis for this admission?: Yes Plan: I will supplement with p.o. potassium tonight. She also is going to be receiving potassium in her IV fluids. (9) Hypomagnesemia Is this a current diagnosis for this admission?: Yes Plan: Her magnesium level was critically low at 0.7. I am going to give her 4 g of magnesium sulfate tonight. She will have a magnesium level drawn in the morning. (10) Full code status Is this a current diagnosis for this admission?: Yes - Time Time Spent: 50 to 70 Minutes - Inpatient Certification Medical Necessity: Need Close Monitoring Due to Risk of Patient Decompensation - The patient will be placed in observation status here in the hospital. She is going to be watched for the next 24 hours in the jaun of her chemotherapy to make sure that she does not develop a fever. The patient has an ANC of 0.0. She needs IV fluids for dehydration as well as repletion of her electrolytes. We will check labs tomorrow and further decisions can be made regarding her status. At this point I anticipate that her hospitalization could be less than 2 midnights. Of note have spoken to Dr. Mendez who will assume the patient' s care tomorrow., Need For IV Fluids, Other
[2017-11-04] MEDS ORDERED: MAGNESIUM SULFATE 4 GM/100 ML RTUPB IV ONE (19:00)
[2017-11-04] MEDS ORDERED: LIDOCAINE 2% JELLY 5 ML TUBE TOP PRN (19:00)
[2017-11-04] MEDS: POTASSI CL 20 MEQ/NS 1L 1,000 ML IV PRN (20:47)
[2017-11-04] MEDS: FLUCONAZOLE 100 MG TABLET PO SCH (20:47)
[2017-11-04 21:08] LABS: ABSOLUTE LYMPHOCYTES (AUTO) 0.7 10^3/uL (0.5-4.7); EOSINOPHILS % (AUTO) 2.8 % (0-6); HEMATOCRIT 28.5 % (36.0-47.0); HEMOGLOBIN 9.9 g/dL (12.0-15.5); MEAN CORPUSCULAR HEMOGLOBIN 29.8 pg (27.0-33.4); MEAN CORPUSCULAR HGB CONC 34.6 g/dL (32.0-36.0); MEAN CORPUSCULAR VOLUME 86 fl (80-97); MONOCYTES % (AUTO) 3.6 % (3-13); RED BLOOD COUNT 3.32 10^6/uL (3.72-5.28); RED CELL DISTRIBUTION WIDTH 16.8 % (11.5-14.0); TOTAL CELLS COUNTED % (AUTO) 100 %
[2017-11-04 21:22] LABS: ALANINE AMINOTRANSFERASE 49 U/L (9-52); ALBUMIN 3.8 g/dL (3.5-5.0); ALKALINE PHOSPHATASE 45 U/L (38-126); ANION GAP 11 (5-19); ASPARTATE AMINO TRANSFERASE 69 U/L (14-36); BILIRUBIN,DIRECT 0.5 mg/dL (0.0-0.4); BILIRUBIN,TOTAL 0.8 mg/dL (0.2-1.3); BLOOD UREA NITROGEN 9 mg/dL (7-20); CALCIUM 8.1 mg/dL (8.4-10.2); CARBON DIOXIDE 29 mmol/L (22-30); CHLORIDE 98 mmol/L (98-107); GLUCOSE 104 mg/dL (75-110); PHOSPHORUS 2.3 mg/dL (2.5-4.5); POTASSIUM 3.4 mmol/L (3.6-5.0); SODIUM 137.5 mmol/L (137-145); TOTAL PROTEIN 7.4 g/dL (6.3-8.2)
[2017-11-04 21:58] LABS: WHITE BLOOD COUNT 0.8 10^3/uL (4.0-10.5)
[2017-11-04 21:59] LABS: LYMPHOCYTES % (AUTO) 89.6 % (13-45); PLATELET COUNT 81 10^3/uL (150-450)
[2017-11-04 22:05] LABS: ANISOCYTOSIS SLIGHT; PLATELET COMMENT DECREASED
[2017-11-04 23:03] LABS: APPEARANCE,URINE CLEAR; BILIRUBIN,URINE NEGATIVE (NEGATIVE); COLOR,URINE YELLOW; GLUCOSE, URINE NEGATIVE (NEGATIVE); KETONES,URINE NEGATIVE (NEGATIVE); LEUKOCYTE ESTERASE,URINE NEGATIVE (NEGATIVE); NITRITE,URINE NEGATIVE (NEGATIVE); PROTEIN,URINE NEGATIVE (NEGATIVE); URINE SPECIFIC GRAVITY 1.005; UROBILINOGEN,URINE NEGATIVE mg/dL (<2.0)
[2017-11-05] MEDS: LEVOTHYROXINE SODIUM 0.025 MG TABLET PO SCH (05:52)
[2017-11-05] MEDS: LEVOTHYROXINE SODIUM 0.1 MG TABLET PO SCH (05:52)
[2017-11-05] MEDS: LANSOPRAZOLE 30 MG TAB.RAP.DR PO SCH (05:52)
[2017-11-05] MEDS ORDERED: LANSOPRAZOLE 15 MG TAB.RAP.DR PO SCH (06:00)
[2017-11-05 06:45] LABS: ALANINE AMINOTRANSFERASE 51 U/L (9-52); ALBUMIN 3.5 g/dL (3.5-5.0); ALKALINE PHOSPHATASE 50 U/L (38-126); ANION GAP 11 (5-19); ASPARTATE AMINO TRANSFERASE 57 U/L (14-36); BILIRUBIN,DIRECT 0.4 mg/dL (0.0-0.4); BILIRUBIN,TOTAL 0.6 mg/dL (0.2-1.3); BLOOD UREA NITROGEN 6 mg/dL (7-20); CALCIUM 7.9 mg/dL (8.4-10.2); CARBON DIOXIDE 26 mmol/L (22-30); CHLORIDE 102 mmol/L (98-107); GLUCOSE 142 mg/dL (75-110); PHOSPHORUS 2.6 mg/dL (2.5-4.5); POTASSIUM 3.4 mmol/L (3.6-5.0); SODIUM 139.4 mmol/L (137-145); TOTAL PROTEIN 6.7 g/dL (6.3-8.2)
[2017-11-05 06:59] LABS: ABSOLUTE LYMPHOCYTES (AUTO) 0.5 10^3/uL (0.5-4.7); EOSINOPHILS % (AUTO) 0.4 % (0-6); HEMATOCRIT 28.5 % (36.0-47.0); LYMPHOCYTES % (AUTO) 90.6 % (13-45); MEAN CORPUSCULAR HEMOGLOBIN 29.8 pg (27.0-33.4); MEAN CORPUSCULAR VOLUME 85 fl (80-97); MONOCYTES % (AUTO) 4.2 % (3-13); RED BLOOD COUNT 3.34 10^6/uL (3.72-5.28); RED CELL DISTRIBUTION WIDTH 16.6 % (11.5-14.0); SEGMENTED NEUTROPHILS % (AUTO) 4.8 % (42-78); TOTAL CELLS COUNTED % (AUTO) 100 %
[2017-11-05 07:13] LABS: WHITE BLOOD COUNT 0.5 10^3/uL (4.0-10.5)
[2017-11-05 07:14] LABS: ANISOCYTOSIS 1+; HYPOCHROMASIA SLIGHT; OVALOCYTES 1+; PLATELET COMMENT DECREASED; PLATELET COUNT 84 10^3/uL (150-450); POIKILOCYTOSIS 1+
--- NOTE | 2017-11-05 08:59 | PDOC CONSULTATION ---
Consultation Consult Date: 11/05/17 Consult reason:: Hematology/Oncology consultation was requested for patient with breast cancer, pancytopenia, and electrolyte abnormalities. History of Present Illness Admission Date/PCP: 11/04/17 16:54 EMMANUELLE GAY MD History of Present Illness: CONNIE DE ANDA is a 67 year old female who was diagnosed with stage IIIA breast cancer in Jul of this year. She is currently receiving Gera-adjuvant chemotherapy with PTCH. She received cycle #4/6 planned cycles on 10/28/2017. Her chemo has been complicated by pancytopenia. She is a Taoism and will not accept blood transfusions. She has also had chronic diarrhea and difficulties with low potassium and magnesium. She presented to the office yesterday with complaints of severe fatigue. No fevers. She was admitted for IV magnesium and potassium replacement. Today, she states that she is feeling ine other than the fatigue. She has no appetite. She denies pain or dyspnea. She continues to have loose stools. Past Medical History Cardiac Medical History: Reports: Hypertension Denies: Coronary Artery Disease, Myocardial Infarction Pulmonary Medical History: Reports: Sleep Apnea Denies: Asthma, Bronchitis, Chronic Obstructive Pulmonary Disease (COPD), Pneumonia EENT Medical History: Reports: None Neurological Medical History: Denies: Seizures Endocrine Medical History: Reports: Diabetes Mellitus Type 2, Hypothyroidism, Obesity Renal/ Medical History: Reports: None Malignancy Medical History: Reports: Breast Cancer GI Medical History: Reports: Gastroesophageal Reflux Disease, Other - Diverticulosis Musculoskeltal Medical History: Reports: Arthritis Skin Medical History: Reports: None Psychiatric Medical History: Reports: None Traumatic Medical History: Reports: None Hematology: Reports: Neutropenia Denies: Anemia Past Surgical History Past Surgical History: Reports: Cholecystectomy, Other - Breast biopsy Denies: Pacemaker Social History Information Source: Patient Occupation: She is a and cleans for a living. Lives with: Family Smoking Status: Never Smoker Frequency of Alcohol Use: None Hx Recreational Drug Use: No Drugs: None Hx Prescription Drug Abuse: No Past Social History Note: She has 3 children. - Advance Directive Resuscitation Status: Full Code Family History Family History: Malignancy Parental Family History Reviewed: Yes - Mother with breast and esophageal cancer. Father with colon cancer Children Family History Reviewed: Yes Sibling(s) Family History Reviewed.: Yes Medication/Allergy Home Medications: Desipramine HCl [Norpramin 50 mg Tablet] 50 mg PO DAILY 11/04/17 Diphenoxylate HCl/Atropine [Diphenoxylate-Atrop 2.5-0.025] 1 tab PO Q6HP PRN 11/16 Levothyroxine Sodium [Synthroid] 125 mcg PO Q6AM 11/04/17 Lorazepam [Ativan 0.5 mg Tablet] 0.5 mg PO Q4HP PRN 11/04/17 Losartan Potassium [Cozaar 100 mg Tablet] 100 mg PO DAILY 11/04/17 Magnesium Oxide [Mag-Ox 400 mg Tablet] 400 mg PO Q12 11/04/17 Metformin HCl [Glucophage] 1,000 mg PO BID 11/04/17 Nebivolol HCl [Bystolic] 10 mg PO DAILY 11/04/17 Omeprazole 20 mg PO DAILY 11/04/17 Ondansetron HCl [Zofran 8 mg Tablet] 8 mg PO Q8HP PRN 11/04/17 Potassium Chloride [Klor-Con M20] 20 meq PO DAILY 11/04/17 Pregabalin [Lyrica] 50 mg PO Q12 11/04/17 Prochlorperazine Maleate [Compazine 10 mg Tablet] 10 mg PO Q4HP PRN 11/04/17 Promethazine HCl [Phenergan 25 mg Tablet] 25 mg PO Q4HP PRN 11/04/17 Allergies/Adverse Reactions: adhesive tape Allergy (Verified 07/31/17 15:57) RASH, SKIN IRRITATION Review of Systems Constitutional: PRESENT: fatigue. ABSENT: fever(s), headache(s) Eyes: ABSENT: visual disturbances Ears: ABSENT: hearing changes Nose, Mouth, and Throat: ABSENT: sore throat Cardiovascular: ABSENT: chest pain Respiratory: ABSENT: dyspnea Gastrointestinal: PRESENT: diarrhea. ABSENT: nausea Genitourinary: ABSENT: dysuria Musculoskeletal: ABSENT: muscle weakness Integumentary: ABSENT: rash Neurological: PRESENT: weakness Hematologic/Lymphatic: ABSENT: lymphadenopathy Physical Exam Vital Signs: Temp Pulse Resp BP Pulse Ox 98.8 F 97 16 136/73 H 94 11/05/17 07:54 11/05/17 07:54 11/05/17 07:54 11/05/17 07:54 11/05/17 07:54 Intake & Output 11/04/17 11/05/17 11/06/17 06:59 06:59 06:59 Weight 106.9 kg General appearance: PRESENT: no acute distress Exam: Overweight, 67 year old female. Sitting up, trying to eat breakfast. Head exam: PRESENT: atraumatic Eye exam: PRESENT: PERRLA Ear exam: PRESENT: normal external ear exam Mouth exam: PRESENT: moist Neck exam: ABSENT: lymphadenopathy, tenderness Respiratory exam: PRESENT: clear to auscultation elmer, unlabored Cardiovascular exam: PRESENT: RRR, systolic murmur GI/Abdominal exam: PRESENT: soft. ABSENT: tenderness Extremities exam: ABSENT: pedal edema Musculoskeletal exam: PRESENT: normal inspection Neurological exam: PRESENT: alert, awake, oriented to person, oriented to place , oriented to time, oriented to situation Psychiatric exam: PRESENT: appropriate affect Focused psych exam: ABSENT: restlessness Skin exam: PRESENT: normal color Results Laboratory Results: 11/05/17 05:45 11/05/17 05:45 11/04/17 11/04/17 11/04/17 20:45 20:45 22:30 WBC 0.8 L* RBC 3.32 L Hgb 9.9 L Hct 28.5 L MCV 86 MCH 29.8 MCHC 34.6 RDW 16.8 H Plt Count 81 L Seg Neutrophils % 4.0 L Lymphocytes % 89.6 H Monocytes % 3.6 Eosinophils % 2.8 Basophils % 0.0 Absolute Neutrophils 0.0 L Absolute Lymphocytes 0.7 Absolute Monocytes 0.0 L Absolute Eosinophils 0.0 Absolute Basophils 0.0 Sodium 137.5 Potassium 3.4 L Chloride 98 Carbon Dioxide 29 Anion Gap 11 BUN 9 Creatinine 0.85 Est GFR ( Amer) > 60 Est GFR (Non-Af Amer) > 60 Glucose 104 Calcium 8.1 L Phosphorus 2.3 L Magnesium 0.9 L* Total Bilirubin 0.8 AST 69 H ALT 49 Alkaline Phosphatase 45 Total Protein 7.4 Albumin 3.8 Urine Color YELLOW Urine Appearance CLEAR Urine pH 6.0 Ur Specific [place] 1.005 Urine Protein NEGATIVE Urine Glucose (UA) NEGATIVE Urine Ketones NEGATIVE Urine Blood NEGATIVE Urine Nitrite NEGATIVE Ur Leukocyte Esterase NEGATIVE Urine WBC (Auto) 2 Urine RBC (Auto) 1 11/05/17 11/05/17 05:45 05:45 WBC 0.5 L* RBC 3.34 L Hgb 10.0 L Hct 28.5 L MCV 85 MCH 29.8 MCHC 35.0 RDW 16.6 H Plt Count 84 L Seg Neutrophils % 4.8 L Lymphocytes % 90.6 H Monocytes % 4.2 Eosinophils % 0.4 Basophils % 0.0 Absolute Neutrophils 0.0 L Absolute Lymphocytes 0.5 Absolute Monocytes 0.0 L Absolute Eosinophils 0.0 Absolute Basophils 0.0 Sodium 139.4 Potassium 3.4 L Chloride 102 Carbon Dioxide 26 Anion Gap 11 BUN 6 L Creatinine 0.75 Est GFR ( Amer) > 60 Est GFR (Non-Af Amer) > 60 Glucose 142 H Calcium 7.9 L Phosphorus 2.6 Magnesium 1.9 D Total Bilirubin 0.6 AST 57 H ALT 51 Alkaline Phosphatase 50 Total Protein 6.7 Albumin 3.5 Urine Color Urine Appearance Urine pH Ur Specific [place] Urine Protein Urine Glucose (UA) Urine Ketones Urine Blood Urine Nitrite Ur Leukocyte Esterase Urine WBC (Auto) Urine RBC (Auto) Assessment & Plan - Diagnosis (1) Breast cancer Qualifiers: Breast location: upper outer quadrant of breast Estrogen receptor status: positive Patient sex: female Laterality: right Qualified Code(s): C50.411 - Malignant neoplasm of upper-outer quadrant of right female breast; Z17.0 - Estrogen receptor positive status [ER+]; Z17.0 - Estrogen receptor positive status [ER+] Is this a current diagnosis for this admission?: Yes Plan: All treatment currently on hold. This treatment is with curative intent, so we have been quite aggressive. (2) Hypokalemia Is this a current diagnosis for this admission?: Yes Plan: IV replacement as indicated. (3) Hypomagnesemia Is this a current diagnosis for this admission?: Yes Plan: Continue replacement. Will try to slow down the diarrhea as well. (4) Neutropenia Qualifiers: Neutropenia type: secondary to cancer chemotherapy Qualified Code(s): D70.1 - Agranulocytosis secondary to cancer chemotherapy; T45.1X5A - Adverse effect of antineoplastic and immunosuppressive drugs, initial encounter; T45.1X5A - Adverse effect of antineoplastic and immunosuppressive drugs, initial encounter Is this a current diagnosis for this admission?: Yes Plan: With pancytopenia. Currently afebrile, but will watch for fever. Her insurance thus far has denies use of G-CSF stimulators. (5) Diarrhea due to drug Is this a current diagnosis for this admission?: Yes Plan: Due to chemo. We have been using immodium and lomotil in the past. Will continue to treat as indicated.
[2017-11-05] MEDS ORDERED: ONDANSETRON HCL INJ/PF 4 MG/2 ML SDV IV PRN (09:00)
[2017-11-05] MEDS ORDERED: HYDRALAZINE HCL INJ/PF 20 MG/1 ML SDV IV PRN (09:00)
[2017-11-05] MEDS ORDERED: (PENDING PHARMACY ID) (Levothyroxine Sodium [Levothyroxine Sodium] 125 MCG) PO SCH (10:00)
[2017-11-05] MEDS ORDERED: (PENDING PHARMACY ID) (Losartan Potassium [Losartan Potassium] 100 MG) PO SCH (10:00)
[2017-11-05] MEDS: NEBIVOLOL HCL 10 MG TABLET PO SCH (11:00)
[2017-11-05] MEDS: LOSARTAN POTASSIUM 50 MG TABLET PO SCH (11:00)
[2017-11-05] MEDS: PREGABALIN 50 MG CAPSULE PO SCH (11:00)
[2017-11-05] MEDS: DESIPRAMINE HCL 50 MG TABLET PO SCH (11:00)
[2017-11-05] MEDS: CHLORTHALIDONE 25 MG TABLET PO SCH (11:00)
[2017-11-05] MEDS: POTASSI CL 20 MEQ/NS 1L 1,000 ML IV PRN ×2 (11:14→21:40)
[2017-11-05] MEDS: FLUCONAZOLE 100 MG TABLET PO SCH (18:04)
[2017-11-06 05:29] LABS: ABSOLUTE LYMPHOCYTES (AUTO) 0.6 10^3/uL (0.5-4.7); BASOPHILS % (AUTO) 1.4 % (0-2); EOSINOPHILS % (AUTO) 0.3 % (0-6); HEMOGLOBIN 8.5 g/dL (12.0-15.5); MEAN CORPUSCULAR HEMOGLOBIN 30.2 pg (27.0-33.4); MEAN CORPUSCULAR HGB CONC 35.5 g/dL (32.0-36.0); MEAN CORPUSCULAR VOLUME 85 fl (80-97); MONOCYTES % (AUTO) 7.3 % (3-13); RED BLOOD COUNT 2.82 10^6/uL (3.72-5.28); RED CELL DISTRIBUTION WIDTH 16.8 % (11.5-14.0); TOTAL CELLS COUNTED % (AUTO) 100 %
[2017-11-06 05:50] LABS: ANISOCYTOSIS 1+; OVALOCYTES SLIGHT; PLATELET COMMENT DECREASED; POIKILOCYTOSIS SLIGHT
[2017-11-06 05:52] LABS: WHITE BLOOD COUNT 0.7 10^3/uL (4.0-10.5)
[2017-11-06 05:55] LABS: PLATELET COUNT 70 10^3/uL (150-450)
[2017-11-06 05:59] LABS: ALANINE AMINOTRANSFERASE 39 U/L (9-52); ALKALINE PHOSPHATASE 40 U/L (38-126); ANION GAP 9 (5-19); ASPARTATE AMINO TRANSFERASE 44 U/L (14-36); BILIRUBIN,DIRECT 0.3 mg/dL (0.0-0.4); BILIRUBIN,TOTAL 0.5 mg/dL (0.2-1.3); BLOOD UREA NITROGEN 3 mg/dL (7-20); CALCIUM 7.7 mg/dL (8.4-10.2); CARBON DIOXIDE 23 mmol/L (22-30); CHLORIDE 106 mmol/L (98-107); GLUCOSE 109 mg/dL (75-110); POTASSIUM 3.9 mmol/L (3.6-5.0); SODIUM 137.9 mmol/L (137-145); TOTAL PROTEIN 6.1 g/dL (6.3-8.2)
[2017-11-06] MEDS: LANSOPRAZOLE 30 MG TAB.RAP.DR PO SCH (06:28)
[2017-11-06] MEDS: LEVOTHYROXINE SODIUM 0.025 MG TABLET PO SCH (06:28)
[2017-11-06] MEDS: LEVOTHYROXINE SODIUM 0.1 MG TABLET PO SCH (06:28)
[2017-11-06] MEDS: LOSARTAN POTASSIUM 50 MG TABLET PO SCH (09:45)
[2017-11-06] MEDS: NEBIVOLOL HCL 10 MG TABLET PO SCH (09:45)
[2017-11-06] MEDS: CHLORTHALIDONE 25 MG TABLET PO SCH (09:45)
[2017-11-06] MEDS: DESIPRAMINE HCL 50 MG TABLET PO SCH (09:45)
[2017-11-06] MEDS: PREGABALIN 50 MG CAPSULE PO SCH (09:45)
[2017-11-06 11:23] LABS: PATH REVIEW PATHOLOGIST REVIEWED
[2017-11-06] MEDS ORDERED: DIPHENOXYLATE HCL/ATROP SULF 2.5-0.025 MG TABLET PO PRN ×2 (11:55→12:32)
[2017-11-06] MEDS: FLUCONAZOLE 100 MG TABLET PO SCH (17:13)
--- NOTE | 2017-11-06 20:41 | PDOC PROGRESS REPORT ---
Subjective Progress Note for:: 11/06/17 Subjective:: She was admitted for the management of pancytopenia due to chemotherapy, diarrhea due to chemotherapy. She was admitted directly from the oncologist's office into the hospital initially under the hospitalist service for the management of severe fatigue associated with diarrhea, pancytopenia. She is presently afebrile, on reverse isolation, she is on IV normal saline to replenish fluid loss from diarrhea. Reason For Visit: NEUTROPENIA,DEHYDRATION,HYPOMAGNESEMIA,AYLIN Physical Exam Vital Signs: Temp Pulse Resp BP Pulse Ox 98.7 F 92 16 131/63 H 100 11/06/17 15:34 11/06/17 15:34 11/06/17 15:34 11/06/17 15:34 11/06/17 15:34 Intake & Output 11/05/17 11/06/17 11/07/17 06:59 06:59 06:59 Intake Total 650 540 Output Total 202 Balance 448 540 Weight 106.9 kg 86 kg 108.4 kg General appearance: PRESENT: no acute distress Eye exam: PRESENT: PERRLA Respiratory exam: PRESENT: clear to auscultation elmer Cardiovascular exam: PRESENT: +S1, +S2 GI/Abdominal exam: PRESENT: soft Neurological exam: PRESENT: alert, CN II-XII grossly intact Results Laboratory Results: 11/06/17 04:48 11/06/17 04:48 11/06/17 11/06/17 04:48 04:48 WBC 0.7 L* RBC 2.82 L Hgb 8.5 L Hct 24.0 L MCV 85 MCH 30.2 MCHC 35.5 RDW 16.8 H Plt Count 70 L Seg Neutrophils % 3.0 L Lymphocytes % 88.0 H Monocytes % 7.3 Eosinophils % 0.3 Basophils % 1.4 Absolute Neutrophils 0.0 L Absolute Lymphocytes 0.6 Absolute Monocytes 0.0 L Absolute Eosinophils 0.0 Absolute Basophils 0.0 Sodium 137.9 Potassium 3.9 Chloride 106 Carbon Dioxide 23 Anion Gap 9 BUN 3 L Creatinine 0.74 Est GFR ( Amer) > 60 Est GFR (Non-Af Amer) > 60 Glucose 109 Calcium 7.7 L Magnesium 1.4 L Total Bilirubin 0.5 AST 44 H ALT 39 Alkaline Phosphatase 40 Total Protein 6.1 L Albumin 3.0 L 11/04/17 22:30 Clean Catch Midstream Urine Culture - Final Mixed Urogenital Alba Assessment & Plan - Diagnosis (1) Diabetes mellitus Qualifiers: Diabetes mellitus type: type 2 Diabetes mellitus complication status: without complication Is this a current diagnosis for this admission?: Yes (2) Diarrhea due to drug Is this a current diagnosis for this admission?: Yes (3) Diarrhea due to drug Is this a current diagnosis for this admission?: Yes (4) Pancytopenia due to antineoplastic chemotherapy Is this a current diagnosis for this admission?: Yes
[2017-11-06] MEDS ORDERED: PROCHLORPERAZINE MALEATE 10 MG TABLET ONE (22:19)
[2017-11-06] MEDS: PROCHLORPERAZINE MALEATE 10 MG TABLET PO PRN (22:33)
[2017-11-06] MEDS: LORAZEPAM 0.5 MG TABLET PO PRN (22:33)
[2017-11-07] MEDS: LANSOPRAZOLE 30 MG TAB.RAP.DR PO SCH (06:55)
[2017-11-07] MEDS: LEVOTHYROXINE SODIUM 0.1 MG TABLET PO SCH (06:55)
[2017-11-07] MEDS: LEVOTHYROXINE SODIUM 0.025 MG TABLET PO SCH (06:55)
[2017-11-07] MEDS: PREGABALIN 50 MG CAPSULE PO SCH (11:46)
[2017-11-07] MEDS: DESIPRAMINE HCL 50 MG TABLET PO SCH (11:47)
[2017-11-07] MEDS: LOSARTAN POTASSIUM 50 MG TABLET PO SCH (11:48)
[2017-11-07] MEDS: NEBIVOLOL HCL 10 MG TABLET PO SCH (11:48)
[2017-11-07] MEDS: CHLORTHALIDONE 25 MG TABLET PO SCH (11:49)
--- NOTE | 2017-11-07 13:35 | PDOC PROGRESS REPORT ---
Subjective Progress Note for:: 11/07/17 Subjective:: Patient was admitted by the hospitalist for the management of pancytopenia secondary to active chemotherapy for HER-2 positive breast cancer, patient's oncologist directly admitted her because of severe fatigue associated with chemotherapy induced pancytopenia. She is afebrile presently on reverse isolation, on IV fluid therapy with normal saline. She continues to have diarrhea most likely secondary to chemotherapy, she is on replacement therapy with IV fluid normal saline Reason For Visit: NEUTROPENIA,DEHYDRATION,HYPOMAGNESEMIA,AYLIN Physical Exam Vital Signs: Temp Pulse Resp BP Pulse Ox 98.3 F 93 16 138/77 H 98 11/07/17 11:21 11/07/17 11:21 11/07/17 11:21 11/07/17 11:21 11/07/17 11:21 Intake & Output 11/06/17 11/07/17 11/08/17 06:59 06:59 06:59 Intake Total 650 540 Output Total 202 Balance 448 540 Weight 86 kg 108.4 kg General appearance: PRESENT: no acute distress, well-developed, well-nourished Head exam: PRESENT: atraumatic, normocephalic Eye exam: PRESENT: conjunctiva pink, EOMI, PERRLA Ear exam: PRESENT: normal external ear exam Mouth exam: PRESENT: moist, tongue midline Neck exam: PRESENT: full ROM Respiratory exam: PRESENT: clear to auscultation elmer Cardiovascular exam: PRESENT: RRR, +S1, +S2 Pulses: PRESENT: normal dorsalis pedis pul, +2 pedal pulses bilateral Vascular exam: PRESENT: normal capillary refill GI/Abdominal exam: PRESENT: normal bowel sounds, soft Rectal exam: PRESENT: deferred Neurological exam: PRESENT: alert, awake, oriented to person, oriented to place , oriented to time, oriented to situation, CN II-XII grossly intact Psychiatric exam: PRESENT: appropriate affect, normal mood Skin exam: PRESENT: dry, intact, warm Results Laboratory Results: 11/06/17 04:48 11/06/17 04:48 11/04/17 22:30 Clean Catch Midstream Urine Culture - Final Mixed Urogenital Alba Assessment & Plan - Diagnosis (1) Pancytopenia due to antineoplastic chemotherapy Is this a current diagnosis for this admission?: Yes (2) Breast cancer Qualifiers: Breast location: unspecified site of breast Estrogen receptor status: positive Patient sex: female Laterality: unspecified laterality Qualified Code(s): C50.919 - Malignant neoplasm of unspecified site of unspecified female breast; Z17.0 - Estrogen receptor positive status [ER+]; Z17.0 - Estrogen receptor positive status [ER+] Is this a current diagnosis for this admission?: Yes (3) Diarrhea due to drug Is this a current diagnosis for this admission?: Yes Plan: She continues to have diarrhea most likely secondary to chemotherapy she stated that she was given lorazepam and Compazine outpatient for the diarrhea, the combination of drug is very strange to treat diarrhea, I believe she is confusing the medications
[2017-11-07 14:24] LABS: HEMATOCRIT 26.5 % (36.0-47.0); HEMOGLOBIN 9.3 g/dL (12.0-15.5); MEAN CORPUSCULAR HEMOGLOBIN 30.2 pg (27.0-33.4); MEAN CORPUSCULAR HGB CONC 35.2 g/dL (32.0-36.0); MEAN CORPUSCULAR VOLUME 86 fl (80-97); RED BLOOD COUNT 3.08 10^6/uL (3.72-5.28); RED CELL DISTRIBUTION WIDTH 16.8 % (11.5-14.0)
[2017-11-07 14:34] LABS: ALANINE AMINOTRANSFERASE 36 U/L (9-52); ALBUMIN 3.3 g/dL (3.5-5.0); ALKALINE PHOSPHATASE 48 U/L (38-126); ANION GAP 10 (5-19); ASPARTATE AMINO TRANSFERASE 42 U/L (14-36); BILIRUBIN,DIRECT 0.4 mg/dL (0.0-0.4); BILIRUBIN,TOTAL 0.5 mg/dL (0.2-1.3); BLOOD UREA NITROGEN 5 mg/dL (7-20); CALCIUM 8.2 mg/dL (8.4-10.2); CARBON DIOXIDE 26 mmol/L (22-30); CHLORIDE 101 mmol/L (98-107); GLUCOSE 116 mg/dL (75-110); POTASSIUM 3.4 mmol/L (3.6-5.0); SODIUM 136.6 mmol/L (137-145); TOTAL PROTEIN 6.7 g/dL (6.3-8.2)
[2017-11-07 14:56] LABS: PLATELET COUNT 91 10^3/uL (150-450)
[2017-11-07 14:59] LABS: ABSOLUTE LYMPHOCYTES# (MANUAL) 1.1 10^3/uL (0.5-4.7); ABSOLUTE NEUTROPHILS# (MANUAL) 0.1 10^3/uL (1.7-8.2); BASOPHILS % (MANUAL) 0 % (0-2); EOSINOPHILS % (MANUAL) 0 % (0-6); LYMPHOCYTES % (MANUAL) 90 % (13-45); MONOCYTES % (MANUAL) 4 % (3-13); SEGMENTED NEUTROPHILS % (MAN) 6 % (42-78); TOTAL CELLS COUNTED 50
[2017-11-07] MEDS ORDERED: POTASSI CL 20 MEQ/50 ML RIDER 20 MEQ/50 ML RTUPB IV SCH (15:00)
[2017-11-07 15:02] LABS: ANISOCYTOSIS 1+; OVALOCYTES 1+; PLATELET COMMENT DECREASED; POIKILOCYTOSIS 1+
[2017-11-07 15:04] LABS: WHITE BLOOD COUNT 1.2 10^3/uL (4.0-10.5)
[2017-11-07] MEDS ORDERED: POTASSIUM CHLORIDE 20 MEQ/50 ML RTU IV ONE ×2 (17:00→19:00)
[2017-11-07] MEDS: FLUCONAZOLE 100 MG TABLET PO SCH (17:43)
[2017-11-08] MEDS: PROCHLORPERAZINE MALEATE 10 MG TABLET PO PRN ×3 (02:08→18:31)
[2017-11-08] MEDS: LORAZEPAM 0.5 MG TABLET PO PRN ×3 (02:08→18:31)
[2017-11-08] MEDS: LEVOTHYROXINE SODIUM 0.1 MG TABLET PO SCH (06:02)
[2017-11-08] MEDS: LANSOPRAZOLE 30 MG TAB.RAP.DR PO SCH (06:02)
[2017-11-08] MEDS: LEVOTHYROXINE SODIUM 0.025 MG TABLET PO SCH (06:02)
[2017-11-08] MEDS ORDERED: ACETAMINOPHEN 325 MG TABLET PO PRN (06:57)
[2017-11-08] MEDS: NEBIVOLOL HCL 10 MG TABLET PO SCH (09:44)
[2017-11-08] MEDS: PREGABALIN 50 MG CAPSULE PO SCH (09:45)
[2017-11-08] MEDS: DESIPRAMINE HCL 50 MG TABLET PO SCH (09:45)
[2017-11-08] MEDS: LOSARTAN POTASSIUM 50 MG TABLET PO SCH (09:45)
[2017-11-08] MEDS: CHLORTHALIDONE 25 MG TABLET PO SCH (13:19)
[2017-11-08 15:40] LABS: HEMATOCRIT 28.5 % (36.0-47.0); HEMOGLOBIN 9.7 g/dL (12.0-15.5); MEAN CORPUSCULAR HEMOGLOBIN 29.9 pg (27.0-33.4); MEAN CORPUSCULAR HGB CONC 34.1 g/dL (32.0-36.0); MEAN CORPUSCULAR VOLUME 88 fl (80-97); PLATELET COUNT 102 10^3/uL (150-450); RED BLOOD COUNT 3.25 10^6/uL (3.72-5.28); RED CELL DISTRIBUTION WIDTH 17.4 % (11.5-14.0)
[2017-11-08 15:55] LABS: ALANINE AMINOTRANSFERASE 31 U/L (9-52); ALBUMIN 3.5 g/dL (3.5-5.0); ALKALINE PHOSPHATASE 44 U/L (38-126); ANION GAP 13 (5-19); ASPARTATE AMINO TRANSFERASE 41 U/L (14-36); BILIRUBIN,DIRECT 0.4 mg/dL (0.0-0.4); BILIRUBIN,TOTAL 0.5 mg/dL (0.2-1.3); BLOOD UREA NITROGEN 7 mg/dL (7-20); CALCIUM 8.2 mg/dL (8.4-10.2); CARBON DIOXIDE 22 mmol/L (22-30); CHLORIDE 103 mmol/L (98-107); GLUCOSE 115 mg/dL (75-110); POTASSIUM 4.5 mmol/L (3.6-5.0); SODIUM 138.2 mmol/L (137-145)
[2017-11-08 16:04] LABS: ABSOLUTE LYMPHOCYTES# (MANUAL) 1.6 10^3/uL (0.5-4.7); ABSOLUTE MONOCYTES # (MANUAL) 0.1 10^3/uL (0.1-1.4); ABSOLUTE NEUTROPHILS# (MANUAL) 0.4 10^3/uL (1.7-8.2); BASOPHILS % (MANUAL) 0 % (0-2); EOSINOPHILS % (MANUAL) 0 % (0-6); LYMPHOCYTES % (MANUAL) 78 % (13-45); MONOCYTES % (MANUAL) 4 % (3-13); SEGMENTED NEUTROPHILS % (MAN) 18 % (42-78); TOTAL CELLS COUNTED 50
[2017-11-08 16:07] LABS: ANISOCYTOSIS 1+; OVALOCYTES 1+; PLATELET COMMENT DECREASED; POIKILOCYTOSIS 1+
--- NOTE | 2017-11-08 16:45 | PDOC PROGRESS REPORT ---
Subjective Progress Note for:: 11/08/17 Subjective:: She was seen by the bedside, she complained of a nosebleed, the white blood cell count is 2000 today, she could be discharged home tomorrow, the cell line has progressively increased in the last couple of days, Reason For Visit: NEUTROPENIA,DEHYDRATION,HYPOMAGNESEMIA,AYLIN Physical Exam Vital Signs: Temp Pulse Resp BP Pulse Ox 97.7 F 81 16 108/57 L 100 11/08/17 15:12 11/08/17 15:12 11/08/17 15:12 11/08/17 15:12 11/08/17 15:12 Intake & Output 11/07/17 11/08/17 11/09/17 06:59 06:59 06:59 Intake Total 540 1002 300 Balance 540 1002 300 Weight 108.4 kg 108.4 kg General appearance: PRESENT: no acute distress Eye exam: PRESENT: PERRLA Respiratory exam: PRESENT: clear to auscultation elmer Cardiovascular exam: PRESENT: +S1, +S2 GI/Abdominal exam: PRESENT: soft Neurological exam: PRESENT: alert Results Laboratory Results: 11/08/17 15:04 11/08/17 15:04 11/08/17 11/08/17 15:04 15:04 WBC 2.0 L RBC 3.25 L Hgb 9.7 L Hct 28.5 L MCV 88 MCH 29.9 MCHC 34.1 RDW 17.4 H Plt Count 102 L Seg Neutrophils % Not Reportable Lymphocytes % Not Reportable Monocytes % Not Reportable Eosinophils % Not Reportable Basophils % Not Reportable Absolute Neutrophils Not Reportable Absolute Lymphocytes Not Reportable Absolute Monocytes Not Reportable Absolute Eosinophils Not Reportable Absolute Basophils Not Reportable Sodium 138.2 Potassium 4.5 Chloride 103 Carbon Dioxide 22 Anion Gap 13 BUN 7 Creatinine 0.80 Est GFR ( Amer) > 60 Est GFR (Non-Af Amer) > 60 Glucose 115 H Calcium 8.2 L Total Bilirubin 0.5 AST 41 H ALT 31 Alkaline Phosphatase 44 Total Protein 7.0 Albumin 3.5 Assessment & Plan - Diagnosis (1) Diabetes mellitus Qualifiers: Diabetes mellitus type: type 2 Diabetes mellitus complication status: without complication Is this a current diagnosis for this admission?: Yes (2) Diarrhea due to drug Is this a current diagnosis for this admission?: Yes (3) Pancytopenia due to antineoplastic chemotherapy Is this a current diagnosis for this admission?: Yes
[2017-11-08] MEDS: FLUCONAZOLE 100 MG TABLET PO SCH (18:19)
[2017-11-09] MEDS: LEVOTHYROXINE SODIUM 0.025 MG TABLET PO SCH (05:35)
[2017-11-09] MEDS: LANSOPRAZOLE 30 MG TAB.RAP.DR PO SCH (05:36)
[2017-11-09] MEDS: LEVOTHYROXINE SODIUM 0.1 MG TABLET PO SCH (05:36)
[2017-11-09 08:14] LABS: HEMATOCRIT 28.3 % (36.0-47.0); HEMOGLOBIN 9.8 g/dL (12.0-15.5); MEAN CORPUSCULAR HEMOGLOBIN 30.1 pg (27.0-33.4); MEAN CORPUSCULAR HGB CONC 34.5 g/dL (32.0-36.0); MEAN CORPUSCULAR VOLUME 87 fl (80-97); PLATELET COUNT 122 10^3/uL (150-450); RED BLOOD COUNT 3.25 10^6/uL (3.72-5.28); RED CELL DISTRIBUTION WIDTH 16.9 % (11.5-14.0)
[2017-11-09 08:36] LABS: ALANINE AMINOTRANSFERASE 33 U/L (9-52); ALBUMIN 3.4 g/dL (3.5-5.0); ALKALINE PHOSPHATASE 48 U/L (38-126); ANION GAP 12 (5-19); ASPARTATE AMINO TRANSFERASE 34 U/L (14-36); BILIRUBIN,DIRECT 0.4 mg/dL (0.0-0.4); BILIRUBIN,TOTAL 0.4 mg/dL (0.2-1.3); BLOOD UREA NITROGEN 7 mg/dL (7-20); CALCIUM 8.3 mg/dL (8.4-10.2); CARBON DIOXIDE 25 mmol/L (22-30); CHLORIDE 104 mmol/L (98-107); GLUCOSE 113 mg/dL (75-110); POTASSIUM 3.6 mmol/L (3.6-5.0); SODIUM 140.8 mmol/L (137-145); TOTAL PROTEIN 6.8 g/dL (6.3-8.2)
[2017-11-09 08:43] LABS: ABSOLUTE LYMPHOCYTES# (MANUAL) 1.4 10^3/uL (0.5-4.7); ABSOLUTE MONOCYTES # (MANUAL) 0.2 10^3/uL (0.1-1.4); ABSOLUTE NEUTROPHILS# (MANUAL) 0.4 10^3/uL (1.7-8.2); BASOPHILS % (MANUAL) 2 % (0-2); EOSINOPHILS % (MANUAL) 0 % (0-6); LYMPHOCYTES % (MANUAL) 66 % (13-45); MONOCYTES % (MANUAL) 10 % (3-13); SEGMENTED NEUTROPHILS % (MAN) 20 % (42-78); TOTAL CELLS COUNTED 50
[2017-11-09 08:44] LABS: ANISOCYTOSIS 1+; OVALOCYTES 1+; PLATELET COMMENT DECREASED; POIKILOCYTOSIS 1+; POLYCHROMASIA SLIGHT
[2017-11-09] MEDS: NEBIVOLOL HCL 10 MG TABLET PO SCH (09:35)
[2017-11-09] MEDS: DESIPRAMINE HCL 50 MG TABLET PO SCH (09:35)
[2017-11-09] MEDS: LOSARTAN POTASSIUM 50 MG TABLET PO SCH (09:36)
[2017-11-09] MEDS: FLUTICASONE NASAL SPRAY 50 MCG/SPRY 120 SPRAY/16 GM NASL SCH (09:36)
[2017-11-09] MEDS: PREGABALIN 50 MG CAPSULE PO SCH (09:37)
[2017-11-09] MEDS: CHLORTHALIDONE 25 MG TABLET PO SCH (09:37)
[2017-11-09] MEDS: FLUCONAZOLE 100 MG TABLET PO SCH (18:55)
--- NOTE | 2017-11-09 21:38 | PDOC CONSULTATION ---
Consultation Consult Date: 11/09/17 Attending physician:: JAIME KEARNEY Consult reason:: Left upper back cyst History of Present Illness Admission Date/PCP: 11/06/17 11:28 JAIME KEARNEY MD History of Present Illness: CONNIE DE ANDA is a 67 year old female Admitted to the hospital for neutropenia by Dr. Kearney secondary to side effects from chemotherapy patient is receiving neoadjuvant treatment invasive breast cancer. Patient is status post port placement by Dr. Hemphill 3 months ago. She has a history of a sebaceous cyst on her face and neck. She also has sebaceous cyst on her left upper back which periodically drains. It is been more active recently while receiving chemotherapy. The cyst was found to be draining and surgery was consulted Past Medical History Cardiac Medical History: Reports: Hypertension Denies: Coronary Artery Disease, Myocardial Infarction Pulmonary Medical History: Reports: Sleep Apnea Denies: Asthma, Bronchitis, Chronic Obstructive Pulmonary Disease (COPD), Pneumonia EENT Medical History: Reports: None Neurological Medical History: Denies: Seizures Endocrine Medical History: Reports: Diabetes Mellitus Type 2, Hypothyroidism, Obesity Renal/ Medical History: Reports: None Malignancy Medical History: Reports: None, Breast Cancer GI Medical History: Reports: Gastroesophageal Reflux Disease, Other - Diverticulosis Musculoskeltal Medical History: Reports: Arthritis Skin Medical History: Reports: None Psychiatric Medical History: Reports: None Traumatic Medical History: Reports: None Hematology: Reports: Neutropenia Denies: Anemia Past Surgical History Past Surgical History: Reports: Cholecystectomy, Other - Breast biopsy Denies: Pacemaker Social History Lives with: Family Smoking Status: Never Smoker Frequency of Alcohol Use: None Hx Recreational Drug Use: No Drugs: None Hx Prescription Drug Abuse: No - Advance Directive Resuscitation Status: Full Code Family History Family History: Malignancy Parental Family History Reviewed: Yes Children Family History Reviewed: Yes Sibling(s) Family History Reviewed.: Yes Medication/Allergy Home Medications: Desipramine HCl [Norpramin 50 mg Tablet] 50 mg PO DAILY 11/04/17 Diphenoxylate HCl/Atropine [Diphenoxylate-Atrop 2.5-0.025] 1 tab PO Q6HP PRN 11/16 Levothyroxine Sodium [Synthroid] 125 mcg PO Q6AM 11/04/17 Lorazepam [Ativan 0.5 mg Tablet] 0.5 mg PO Q4HP PRN 11/04/17 Losartan Potassium [Cozaar 100 mg Tablet] 100 mg PO DAILY 11/04/17 Magnesium Oxide [Mag-Ox 400 mg Tablet] 400 mg PO Q12 11/04/17 Metformin HCl [Glucophage] 1,000 mg PO BID 11/04/17 Nebivolol HCl [Bystolic] 10 mg PO DAILY 11/04/17 Omeprazole 20 mg PO DAILY 11/04/17 Ondansetron HCl [Zofran 8 mg Tablet] 8 mg PO Q8HP PRN 11/04/17 Potassium Chloride [Klor-Con M20] 20 meq PO DAILY 11/04/17 Pregabalin [Lyrica] 50 mg PO Q12 11/04/17 Prochlorperazine Maleate [Compazine 10 mg Tablet] 10 mg PO Q4HP PRN 11/04/17 Promethazine HCl [Phenergan 25 mg Tablet] 25 mg PO Q4HP PRN 11/04/17 Allergies/Adverse Reactions: adhesive tape Allergy (Verified 07/31/17 15:57) RASH, SKIN IRRITATION Review of Systems Constitutional: PRESENT: weakness. ABSENT: chills, fever(s), headache(s), weight gain, weight loss Eyes: ABSENT: visual disturbances Ears: ABSENT: hearing changes Cardiovascular: ABSENT: chest pain, dyspnea on exertion, edema, orthropnea, palpitations Physical Exam Vital Signs: Temp Pulse Resp BP Pulse Ox 98.4 F 83 18 124/67 100 11/09/17 16:00 11/09/17 16:00 11/09/17 16:00 11/09/17 16:00 11/09/17 16:00 Intake & Output 11/08/17 11/09/17 11/10/17 06:59 06:59 06:59 Intake Total 5817 372 7404 Balance 3415 132 1353 Weight 108.4 kg 108.2 kg General appearance: PRESENT: no acute distress Mouth exam: PRESENT: dry mucosa Respiratory exam: PRESENT: other - Left chest wall port site in good position GI/Abdominal exam: PRESENT: soft Skin exam: PRESENT: other - Upper back sebaceous cyst actively draining sero- cloudy fluid. Minimal tenderness. No active pus Results Laboratory Results: 11/09/17 07:42 11/09/17 07:42 11/09/17 11/09/17 07:42 07:42 WBC 2.0 L RBC 3.25 L Hgb 9.8 L Hct 28.3 L MCV 87 MCH 30.1 MCHC 34.5 RDW 16.9 H Plt Count 122 L Seg Neutrophils % Not Reportable Lymphocytes % Not Reportable Monocytes % Not Reportable Eosinophils % Not Reportable Basophils % Not Reportable Absolute Neutrophils Not Reportable Absolute Lymphocytes Not Reportable Absolute Monocytes Not Reportable Absolute Eosinophils Not Reportable Absolute Basophils Not Reportable Sodium 140.8 Potassium 3.6 Chloride 104 Carbon Dioxide 25 Anion Gap 12 BUN 7 Creatinine 0.85 Est GFR ( Amer) > 60 Est GFR (Non-Af Amer) > 60 Glucose 113 H Calcium 8.3 L Total Bilirubin 0.4 AST 34 ALT 33 Alkaline Phosphatase 48 Total Protein 6.8 Albumin 3.4 L Assessment & Plan - Diagnosis (1) Sebaceous cyst Is this a current diagnosis for this admission?: Yes Plan: Chronic, recurrent, active secondary to chemotherapeutic effect. No evidence of acute need for operative drainage tonight. Recommendations: 1. Treat drainage with the dry dressings as needed 2. She can follow-up Dr. [facility] for interval cyst excision at her convenience. (2) Neutropenia Qualifiers: Neutropenia type: secondary to cancer chemotherapy Qualified Code(s): D70.1 - Agranulocytosis secondary to cancer chemotherapy; T45.1X5A - Adverse effect of antineoplastic and immunosuppressive drugs, initial encounter; T45.1X5A - Adverse effect of antineoplastic and immunosuppressive drugs, initial encounter Is this a current diagnosis for this admission?: Yes (4) Breast cancer Qualifiers: Breast location: upper outer quadrant of breast Estrogen receptor status: positive Patient sex: female Laterality: right Qualified Code(s): C50.411 - Malignant neoplasm of upper-outer quadrant of right female breast; Z17.0 - Estrogen receptor positive status [ER+]; Z17.0 - Estrogen receptor positive status [ER+] Is this a current diagnosis for this admission?: Yes - Time Time Spent: 30 to 50 Minutes Smoking Cessation Education: 3 to 10 minutes Medications reviewed and adjusted accordingly: Yes Anticipated discharge: Home
--- NOTE | 2017-11-09 21:41 | PDOC DISCHARGE SUMMARY ---
General - Admit/Disc Date/PCP Admission Date/Primary Care Provider: 11/06/17 11:28 JAIME KEARNEY MD Discharge Date: 11/09/17 - Discharge Diagnosis (1) Diabetes mellitus Is this a current diagnosis for this admission?: Yes (2) Diarrhea due to drug Is this a current diagnosis for this admission?: Yes (3) Pancytopenia due to antineoplastic chemotherapy Is this a current diagnosis for this admission?: Yes (4) Sebaceous cyst Is this a current diagnosis for this admission?: Yes (5) Hypomagnesemia Is this a current diagnosis for this admission?: Yes (6) Hypokalemia Is this a current diagnosis for this admission?: Yes (7) Breast cancer Is this a current diagnosis for this admission?: Yes - Additional Information Resuscitation Status: Full Code Discharge Activity: Activity As Tolerated Home Medications: Desipramine HCl [Norpramin 50 mg Tablet] 50 mg PO DAILY 11/04/17 Diphenoxylate HCl/Atropine [Diphenoxylate-Atrop 2.5-0.025] 1 tab PO Q6HP PRN 11/16 Levothyroxine Sodium [Synthroid] 125 mcg PO Q6AM 11/04/17 Lorazepam [Ativan 0.5 mg Tablet] 0.5 mg PO Q4HP PRN 11/04/17 Losartan Potassium [Cozaar 100 mg Tablet] 100 mg PO DAILY 11/04/17 Magnesium Oxide [Mag-Ox 400 mg Tablet] 400 mg PO Q12 11/04/17 Metformin HCl [Glucophage] 1,000 mg PO BID 11/04/17 Nebivolol HCl [Bystolic] 10 mg PO DAILY 11/04/17 Omeprazole 20 mg PO DAILY 11/04/17 Ondansetron HCl [Zofran 8 mg Tablet] 8 mg PO Q8HP PRN 11/04/17 Potassium Chloride [Klor-Con M20] 20 meq PO DAILY 11/04/17 Pregabalin [Lyrica] 50 mg PO Q12 11/04/17 Prochlorperazine Maleate [Compazine 10 mg Tablet] 10 mg PO Q4HP PRN 11/04/17 Promethazine HCl [Phenergan 25 mg Tablet] 25 mg PO Q4HP PRN 11/04/17 History of Present Illness History of Present Illness: CONNIE DE ANDA is a 67 year old female, She was admitted directly from oncologist office initially under the hospitalist service for the management of severe diarrhea in the setting of severe pancytopenia due to chemotherapy. Hospital Course Hospital Course: Patient care was transferred to my service when the hospitalist became aware that she is my patient, she was admitted for the management of severe diarrhea associated with severe pancytopenia due to chemotherapy. She was afebrile throughout hospital stay the stool study was negative for any infection, it was assumed that the diarrhea is most likely from chemotherapy. She is presently actively undergoing chemotherapy for breast cancer. She also have sebaceous cyst in the upper back posteriorly, she was seen by the surgeon it was felt that there is no indication at this time for excision this will be planned outpatient. There was severe electrolyte derangement due to profuse diarrhea including hypokalemia, hypomagnesemia and these were corrected Physical Exam Vital Signs: Temp Pulse Resp BP Pulse Ox 98.4 F 83 18 124/67 100 11/09/17 16:00 11/09/17 16:00 11/09/17 16:00 11/09/17 16:00 11/09/17 16:00 Intake & Output 11/08/17 11/09/17 11/10/17 06:59 06:59 06:59 Intake Total 7532 576 8408 Balance 3148 236 3217 Weight 108.4 kg 108.2 kg General appearance: PRESENT: no acute distress, well-developed, well-nourished Head exam: PRESENT: atraumatic, normocephalic Eye exam: PRESENT: conjunctiva pink, EOMI, PERRLA Ear exam: PRESENT: normal external ear exam Mouth exam: PRESENT: moist, tongue midline Neck exam: PRESENT: full ROM Respiratory exam: PRESENT: clear to auscultation elmer Cardiovascular exam: PRESENT: RRR, +S1, +S2 Pulses: PRESENT: normal dorsalis pedis pul, +2 pedal pulses bilateral Vascular exam: PRESENT: normal capillary refill GI/Abdominal exam: PRESENT: normal bowel sounds, soft Rectal exam: PRESENT: deferred Neurological exam: PRESENT: alert, awake, oriented to person, oriented to place , oriented to time, oriented to situation, CN II-XII grossly intact Psychiatric exam: PRESENT: appropriate affect, normal mood Skin exam: PRESENT: dry, intact, warm Results Laboratory Results: 11/09/17 07:42 11/09/17 07:42 11/09/17 11/09/17 07:42 07:42 WBC 2.0 L RBC 3.25 L Hgb 9.8 L Hct 28.3 L MCV 87 MCH 30.1 MCHC 34.5 RDW 16.9 H Plt Count 122 L Seg Neutrophils % Not Reportable Lymphocytes % Not Reportable Monocytes % Not Reportable Eosinophils % Not Reportable Basophils % Not Reportable Absolute Neutrophils Not Reportable Absolute Lymphocytes Not Reportable Absolute Monocytes Not Reportable Absolute Eosinophils Not Reportable Absolute Basophils Not Reportable Sodium 140.8 Potassium 3.6 Chloride 104 Carbon Dioxide 25 Anion Gap 12 BUN 7 Creatinine 0.85 Est GFR ( Amer) > 60 Est GFR (Non-Af Amer) > 60 Glucose 113 H Calcium 8.3 L Total Bilirubin 0.4 AST 34 ALT 33 Alkaline Phosphatase 48 Total Protein 6.8 Albumin 3.4 L Qualifiers - * PATIENT BEING DISCHARGED WITH ANY OF THE FOLLOWING DIAGNOSIS: No
[2017-11-10] MEDS: LEVOTHYROXINE SODIUM 0.025 MG TABLET PO SCH (05:59)
[2017-11-10] MEDS: LEVOTHYROXINE SODIUM 0.1 MG TABLET PO SCH (05:59)
[2017-11-10] MEDS: LANSOPRAZOLE 30 MG TAB.RAP.DR PO SCH (05:59)
[2017-11-10] MEDS: LOSARTAN POTASSIUM 50 MG TABLET PO SCH (09:25)
[2017-11-10] MEDS: PREGABALIN 50 MG CAPSULE PO SCH (09:25)
[2017-11-10 09:26] VITALS: BP 124/67
[2017-11-10] MEDS: CHLORTHALIDONE 25 MG TABLET PO SCH (09:26)
[2017-11-10] MEDS: DESIPRAMINE HCL 50 MG TABLET PO SCH (09:26)
[2017-11-10] MEDS: NEBIVOLOL HCL 10 MG TABLET PO SCH (09:26)
[2017-11-10] MEDS: FLUTICASONE NASAL SPRAY 50 MCG/SPRY 120 SPRAY/16 GM NASL SCH (09:26)
== END 2017-11-10 10:15 | disposition home or self-care (01) | DRG 809 ==
LOC: 4S 16:54 → OBSVTOIN 11-06 11:28
PROVIDERS: ADMIT Internal Medicine; ATTEND Internal Medicine
DX: D61.810 Antineoplastic chemotherapy induced pancytopenia (principal); K52.1 Toxic gastroenteritis and colitis; Z68.41 Body mass index [BMI] 40.0-44.9, adult; T45.1X5A Adverse effect of antineoplastic and immunosuppressive drugs, initial encounter; E11.9 Type 2 diabetes mellitus without complications; L72.3 Sebaceous cyst; E83.42 Hypomagnesemia; E87.6 Hypokalemia; C50.919 Malignant neoplasm of unspecified site of unspecified female breast; I10 Essential (primary) hypertension; G47.30 Sleep apnea, unspecified; E66.9 Obesity, unspecified; E03.9 Hypothyroidism, unspecified; K21.9 Gastro-esophageal reflux disease without esophagitis; M19.90 Unspecified osteoarthritis, unspecified site; C50.411 Malignant neoplasm of upper-outer quadrant of right female breast; E86.0 Dehydration; B37.9 Candidiasis, unspecified; Z17.0 Estrogen receptor positive status [ER+]; Z79.899 Other long term (current) drug therapy; Z90.49 Acquired absence of other specified parts of digestive tract; Z80.9 Family history of malignant neoplasm, unspecified; Z80.3 Family history of malignant neoplasm of breast; Z80.0 Family history of malignant neoplasm of digestive organs
CPT/HCPCS: 36415; 80048; 80053; 80076; 81001; 82962; 83036; 83735; 84100; 84443; 85025; 87086; G0378; G0379; J1642; J3475; J3480; J3490; S0183

== ENCOUNTER 2017-11-20 09:57 | Outpatient (CLI) | payer MEDICAID, MEDICARE ==
[~2017-11-20 09:57] MED LIST changes: +MAGNESIUM SULFATE 1 GM/D5W 100 ML IV PRN; -NORMAL SALINE 1000 ML 1,000 ML IV PRN; +NORMAL SALINE 250 ML IV PRN; -ONDANSETRON HCL INJ/PF 4 MG/2 ML SDV IV PRN
[2017-11-20] MEDS ORDERED: NORMAL SALINE 250 ML IV PRN (10:24)
[2017-11-20] MEDS: MAGNESIUM SULFATE 1 GM/D5W 100 ML IV PRN ×2 (10:38→11:36)
[2017-11-20 11:06] VITALS: BP 119/66
== END 2017-11-20 12:45 | disposition home or self-care (01) ==
LOC: II 09:57 → 5TH 09:59 → II 12:45
PROVIDERS: ATTEND Internal Medicine Hematology & Oncology
PROC: 3E043GC Introduction of Other Therapeutic Substance into Central Vein, Percutaneous Approach (ICD-10-PCS; principal; 2017-11-20)
DX: E83.42 Hypomagnesemia (principal)
CPT/HCPCS: 96367; J3475; 96365; 96366

== ENCOUNTER 2017-11-26 08:03 | Outpatient (CLI) | payer MEDICARE ==
[2017-11-26 08:54] VITALS: BP 123/70
== END 2017-11-26 11:08 | disposition home or self-care (01) ==
LOC: II 08:03 → 5TH 08:09 → II 11:08
PROVIDERS: ATTEND Internal Medicine Hematology & Oncology
PROC: 3E043GC Introduction of Other Therapeutic Substance into Central Vein, Percutaneous Approach (ICD-10-PCS; principal; 2017-11-26)
DX: E83.42 Hypomagnesemia (principal)
CPT/HCPCS: 96365; 96366; 96374; J3475; 96375

== ENCOUNTER → 2017-12-11 | Outpatient (CLI) | payer MEDICARE ==
--- NOTE | 2017-12-11 15:52 | RADIOLOGY REPORT (SQ) ---
EXAM DESCRIPTION: NM MUGA REST COMPLETED DATE/TIME: 12/11/2017 3:34 pm REASON FOR STUDY: ENCTR FOR CHEMO (Z51.11), ENCTR POST CHEMO (Z08) Z08 ENCNTR FOR FOLLOW-UP EXAM AF TER TRTMT FOR MALIGNANT NEOP Z51.11 ENCOUNTER FOR ANTINEOPLASTIC CHEMOTHERAPY COMPARISON: None. RADIONUCLIDE AND DOSE: 26.8 mCi technetium 99m labeled red blood cells The route of agent administration: Intravenous TECHNIQUE: Following administration of the radionuclide, gated images of the heart are obtained in t hree projections. Left ventricular functional analysis performed. LIMITATIONS: None. FINDINGS: LEFT VENTRICULAR FUNCTION: EJECTION FRACTION: 68%. END-DIASTOLIC VOLUME: 41 mL. END-SYSTOLIC VOLUME: 10 mL. WALL MOTION: No focal wall motion abnormalities. OTHER: No other significant finding. IMPRESSION: NORMAL CARDIAC MUGA STUDY. NORMAL LEFT VENTRICULAR FUNCTION WITH VALUES ABOVE. TECHNICAL DOCUMENTATION: JOB ID: [id number] [employer]- All Rights Reserved Reading location - IP/workstation name: [email or web address]
== END ==
LOC: RAD 13:41
PROVIDERS: ATTEND Internal Medicine Hematology & Oncology
DX: Z08 Encounter for follow-up examination after completed treatment for malignant neoplasm (principal); Z85.89 Personal history of malignant neoplasm of other organs and systems
CPT/HCPCS: 78472; A9560

== ENCOUNTER 2017-12-17 08:25 | Outpatient (CLI) | payer MEDICARE, MEDICAID ==
[~2017-12-17 08:25] MED LIST changes: -MAGNESIUM SULFATE 1 GM/D5W 100 ML IV PRN; +MAGNESIUM SULFATE 4 GM/D5W 100 ML IV PRN
[2017-12-17 09:51] VITALS: BP 135/64
== END 2017-12-17 13:23 | disposition home or self-care (01) ==
LOC: II 08:25 → 5TH 09:10 → II 13:23
PROVIDERS: ATTEND Internal Medicine Hematology & Oncology
PROC: 3E043GC Introduction of Other Therapeutic Substance into Central Vein, Percutaneous Approach (ICD-10-PCS; principal; 2017-12-17)
DX: E83.42 Hypomagnesemia (principal)
CPT/HCPCS: 96365; 96366; J3475; 96374

== ENCOUNTER 2017-12-24 08:12 | Outpatient (CLI) | payer MEDICARE, MEDICAID ==
[~2017-12-24 08:12] MED LIST changes: -MAGNESIUM SULFATE 4 GM/D5W 100 ML IV PRN
[2017-12-24] MEDS ORDERED: NORMAL SALINE 1000 ML 1,000 ML IV PRN (08:42)
[2017-12-24] MEDS: MAGNESIUM SULFATE 1 GM/D5W 100 ML IV PRN ×2 (09:31→10:28)
[2017-12-24 11:30] VITALS: BP 101/53
== END 2017-12-24 11:48 | disposition home or self-care (01) ==
LOC: II 08:12 → 5TH 08:14 → II 11:48
PROVIDERS: ATTEND Internal Medicine
PROC: 3E033GC Introduction of Other Therapeutic Substance into Peripheral Vein, Percutaneous Approach (ICD-10-PCS; principal; 2017-12-24)
PROC: 3E0337Z Introduction of Electrolytic and Water Balance Substance into Peripheral Vein, Percutaneous Approach (ICD-10-PCS; 2017-12-24)
DX: E83.42 Hypomagnesemia (principal)
CPT/HCPCS: 96365; 96366; 96367; 96361; J3475; 96360

== ENCOUNTER 2018-01-22 09:47 | Outpatient (CLI) | payer MEDICARE, MEDICAID ==
[2018-01-22] MEDS ORDERED: NORMAL SALINE 250 ML IV PRN (10:04)
[2018-01-22 10:11] VITALS: BP 145/86
[2018-01-22] MEDS: MAGNESIUM SULFATE/D5W 2 GM/200 ML RTUPB IV PRN ×2 (10:32→11:32)
== END 2018-01-22 12:33 | disposition home or self-care (01) ==
LOC: II 09:47 → 5TH 09:51 → II 12:33
PROVIDERS: ATTEND Internal Medicine
PROC: 3E043GC Introduction of Other Therapeutic Substance into Central Vein, Percutaneous Approach (ICD-10-PCS; principal; 2018-01-22)
DX: E83.42 Hypomagnesemia (principal)
CPT/HCPCS: 96365; 96366; 96374

== ENCOUNTER 2018-01-27 05:32 | Day surgery (SDC) | payer MEDICARE, MEDICAID ==
[2018-01-15 12:16] LABS: HEMATOCRIT 30.5 % (36.0-47.0); HEMOGLOBIN 10.4 g/dL (12.0-15.5); MEAN CORPUSCULAR HEMOGLOBIN 34.2 pg (27.0-33.4); MEAN CORPUSCULAR HGB CONC 34.2 g/dL (32.0-36.0); MEAN CORPUSCULAR VOLUME 100 fl (80-97); PLATELET COUNT 240 10^3/uL (150-450); RED BLOOD COUNT 3.05 10^6/uL (3.72-5.28); RED CELL DISTRIBUTION WIDTH 18.6 % (11.5-14.0); WHITE BLOOD COUNT 3.6 10^3/uL (4.0-10.5)
--- NOTE | 2018-01-15 12:24 | EKG REPORT ---
SEVERITY:- BORDERLINE ECG - SINUS RHYTHM WITH PAC LVH BY VOLTAGE NONSPECIFIC ST-T CHANGES ANTEROLATERAL LEADS : Confirmed by: Santino Zamarripa MD 15-Jan-2018 12:23:45
[2018-01-15 13:16] LABS: ANION GAP 12 (5-19); BLOOD UREA NITROGEN 14 mg/dL (7-20); CALCIUM 9.4 mg/dL (8.4-10.2); CARBON DIOXIDE 29 mmol/L (22-30); CHLORIDE 100 mmol/L (98-107); GLUCOSE 138 mg/dL (75-110); SODIUM 141.2 mmol/L (137-145)
[~2018-01-27 05:32] MED LIST changes: +CEFAZOLIN 1 GM/D5W RTU 1 GM/50 ML RTUPB IV PRN; +LACTATED RINGERS 1000 ML IV PRN; +LIDOCAINE 0.5% INJ-PF (5 MG/ML) 50 ML SDV SUBCUT PRN; -NORMAL SALINE 250 ML IV PRN
[2018-01-27] MEDS ORDERED: LIDOCAINE 1%/EPINEPHRINE INJ 20 ML VIAL ONE (06:38)
[2018-01-27] MEDS ORDERED: MICROFIBRILLAR COLLAGEN 1 GM PACK ONE ×3 (06:38→10:03)
[2018-01-27] MEDS ORDERED: FENTANYL CITRATE INJ/PF 250 MCG/5 ML AMPULE ONE (07:09)
[2018-01-27] MEDS ORDERED: ONDANSETRON HCL INJ/PF 4 MG/2 ML SDV ONE ×2 (07:10→13:05)
[2018-01-27] MEDS ORDERED: MIDAZOLAM 2 MG/2 ML INJ ONE (07:10)
[2018-01-27] MEDS ORDERED: DEXAMETHASONE SOD PHOSPHATE INJ 4 MG/1 ML VIAL ONE (07:10)
[2018-01-27] MEDS ORDERED: HYDROMORPHONE HCL INJ/PF 2 MG/ML AMPULE ONE (07:10)
[2018-01-27] MEDS ORDERED: PROPOFOL INJ 200 MG/20 ML VIAL IV ONE (07:10)
[2018-01-27] MEDS ORDERED: ACETAMINOPHEN 1,000 MG/100 ML RTUPB IV ONE (07:10)
[2018-01-27] MEDS ORDERED: SUCCINYLCHOLINE CHLORIDE INJ 200 MG/10 ML VIAL ONE (10:31)
[2018-01-27] MEDS ORDERED: CEFAZOLIN INJ 1 GM VIAL ONE (10:39)
[2018-01-27] MEDS ORDERED: FENTANYL CITRATE INJ/PF 100 MCG/2 ML AMPUL IV PRN ×3 (10:43)
[2018-01-27] MEDS ORDERED: MORPHINE SULFATE 10 MG/ML INJ IV PRN ×2 (10:43→11:55)
[2018-01-27] MEDS ORDERED: PROMETHAZINE HCL INJ 25 MG/1 ML VIAL IV PRN (10:43)
[2018-01-27] MEDS ORDERED: MEPERIDINE HCL/PF INJ 25 MG/1 ML DISP.SYRIN IV PRN (10:43)
[2018-01-27] MEDS ORDERED: DIPHENHYDRAMINE HCL 50 MG/ML VIAL IV PRN (10:43)
[2018-01-27] MEDS ORDERED: OXYCODONE-ACETAMINOPHEN 5-325 MG TABLET PO PRN (11:55)
[2018-01-27] MEDS ORDERED: DEXTROSE 5%-LACTATED RINGERS 1,000 ML IV PRN (11:55)
--- NOTE | 2018-01-27 12:08 | Operative Report ---
Operative Report DATE OF SURGERY: 01/27/18 PREOPERATIVE DIAGNOSIS: Stage III right breast carcinoma, infiltrating ductal, with axillary metastases status post neoadjuvant chemotherapy POSTOPERATIVE DIAGNOSIS: Same OPERATION: 1. Right modified radical mastectomy with 2 drain placement chest wall. 2. Left mastectomy with single drain placement chest wall SURGEON: TOMASA LEMA GEOMETRY TEACHER: BRIANA HOOD ANESTHESIA: GA TISSUE REMOVED OR ALTERED: Right breast with axillary contents and associated fatty tissue; left breast COMPLICATIONS: None ESTIMATED BLOOD LOSS: 100 cc INTRAOPERATIVE FINDINGS: See below PROCEDURE: The patient was taken from the preop holding area room where general anesthesia was induced. Both arms were abducted, and markings made on the skin for bilateral mastectomy. A peripheral IV was established in the left arm, and the left subclavian port was de-accessed. We approached the right breast first. Both breasts neck and chest wall were prepped and draped in sterile fashion. Surgical plan and surgical timeout were conducted. This included the right modified radical mastectomy with complete axillary contents removal for known invasive locally metastatic breast carcinoma , and left simple prophylactic mastectomy. The right breast was incised with a #10 blade in elliptical fashion, and superior and inferior skin flaps were raised of appropriate thickness. The level of dissection was taken to the infraclavicular area superiorly, laterally to the latissimus dorsi muscle, and inferiorly down to the radius anterior muscle. Medially the level of dissection was taken to the sternum. The breast was taken off of the chest wall uneventfully. There was no gross evidence of tumor involvement in the pectoralis fascia or muscle. The Bookwalter retractor system was established to optimize exposure to the right axilla. The tail of Rajiv was taken up all the way to the axilla proper. We now completed the right axillary dissection in continuity with the right breast. Axillary contents were swept off of the inferior surface of the pectoralis major muscle, and the inferior surface of the pack minor muscle. Dissection was made challenging by generalized scar tissue secondary to neoadjuvant chemotherapy. Axillary contents were swept off of the chest wall laterally, with visualization of the long thoracic nerve and vascular bundle. Laterally we took the level of dissection from the lateral border of the latissimus dorsi muscle medially. Superiorly the axillary fat was taken off of the inferior surface of the axillary vein. Several small neurologic branches likely residential sales representative of the intercostal brachial nerves were divided as encountered. The thoracodorsal complex was identified late in the dissection and preserved nicely. Eventually all of the fatty tissue was removed from the posterior surface of the axillary floor. The respective nerves to the serratus anterior muscle and the latissimus dorsi muscle were pinched and these nerves intact and the muscles twitched accordingly. The right breast was marked with a long suture the lateral position short suture in the superior position and was sent with fragmented fatty tissue to pathology. We checked for bleeding and any small oozers were cauterized as encountered. We felt the completeness of the axillary dissection was very good. There was no gross evidence of palpable c disease left in the axilla. In fact throughout the axillary dissection, no obvious enlarged lymph nodes were identified. We placed 2 large Osito drains in the inframammary fold secured into the skin with 2-0 Prolene suture trimmed and the appropriate length, hooked into the bulb suctioned and the right mastectomy incision closed with 2-0 Vicryl suture in a running continuous fashion. We now approached the left breast for the prophylactic mastectomy. A mirror image mastectomy was performed incising the breast in elliptical fashion with # 10 blade. Superior and inferior skin flaps were raised again to the appropriate extent including the subclavian area superiorly, the parasternal area medially, the superficial aspect of the axilla laterally in the serratus anterior early. The breast was taken off and labeled with long suture in the lateral position short suture in the superior position. Large Osito drain was placed in the inferior skin flap and secured to skin with 2-0 Prolene suture. Avitene hemostatic agent was placed in the recesses of both wounds prior to closure. The left chest wall was closed over the single drain with a 2-0 Vicryl suture. Both incisions closed with several tubes of Dermabond glue. Sponge and needle counts are correct at the conclusion of the operation. The patient was awakened from general anesthesia, extubated and taken to recovery room in stable. The physician senior office support assistant sosa, Ms. Cruz, provided assistance during this case by: Assisting with retracting tissue, instillation of local anesthesia and closure of skin incisions.
[2018-01-27] MEDS ORDERED: LORAZEPAM 0.5 MG TABLET PO PRN (17:29)
[2018-01-27] MEDS ORDERED: DIPHENOXYLATE HCL/ATROP SULF 2.5-0.025 MG TABLET PO PRN (17:29)
[2018-01-27] MEDS ORDERED: PROCHLORPERAZINE MALEATE 10 MG TABLET PO PRN (17:29)
[2018-01-27] MEDS ORDERED: KETOROLAC TROMETHAMINE INJ/PF 30 MG/1 ML SDV IV PRN (17:54)
[2018-01-27] MEDS ORDERED: GLUCAGON,HUMAN RECOMB 1 MG INJ IM PRN (17:55)
[2018-01-27] MEDS ORDERED: DEXTROSE 40% GEL 15 GM TUBE PO PRN ×2 (17:55)
[2018-01-27] MEDS ORDERED: INSULIN REG, HUMAN 100 UNIT/ML 3 ML VIAL (PYX) SUBCUT PRN (17:55)
[2018-01-27] MEDS ORDERED: DEXTROSE 50%-WATER 25 GM/50 ML DISP.SYRIN IV PRN ×2 (17:55)
[2018-01-27] MEDS ORDERED: MAGNESIUM OXIDE 1000 MG PO SCH (18:00)
[2018-01-27] MEDS ORDERED: ACETAMINOPHEN INJ/PF 1000 MG/100 ML SDV IV SCH (18:00)
[2018-01-27] MEDS ORDERED: BRIMONIDINE TARTRATE 0.2% OPH SOLN 5 ML OU SCH (18:00)
[2018-01-27] MEDS: ACETAMINOPHEN 1,000 MG/100 ML RTUPB IV SCH ×2 (18:47→23:28)
[2018-01-27] MEDS: METFORMIN HCL 500 MG TABLET PO SCH (18:48)
[2018-01-27] MEDS: MAGNESIUM OXIDE 400 MG TABLET PO SCH (18:48)
[2018-01-27] MEDS ORDERED: ONDANSETRON HCL INJ/PF 4 MG/2 ML SDV IV PRN (20:34)
[2018-01-27] MEDS: PREGABALIN 50 MG CAPSULE PO SCH (21:13)
[2018-01-27] MEDS ORDERED: ATORVASTATIN CALCIUM 10 MG TABLET PO SCH (22:00)
[2018-01-28] MEDS ORDERED: (PENDING PHARMACY ID) (Levothyroxine Sodium [Synthroid] 125 MCG) PO SCH (06:00)
[2018-01-28] MEDS ORDERED: LEVOTHYROXINE SODIUM 0.025 MG TABLET PO SCH (06:00)
[2018-01-28] MEDS ORDERED: LANSOPRAZOLE 15 MG TAB.RAP.DR PO SCH (06:00)
[2018-01-28] MEDS ORDERED: LEVOTHYROXINE SODIUM 0.1 MG TABLET PO SCH (06:00)
[2018-01-28] MEDS: ACETAMINOPHEN 1,000 MG/100 ML RTUPB IV SCH ×2 (06:19→12:36)
[2018-01-28] MEDS ORDERED: CHLORTHALIDONE 25 MG TABLET PO SCH (08:00)
[2018-01-28] MEDS: MAGNESIUM OXIDE 400 MG TABLET PO SCH (09:22)
[2018-01-28] MEDS: PREGABALIN 50 MG CAPSULE PO SCH (09:23)
[2018-01-28] MEDS: METFORMIN HCL 500 MG TABLET PO SCH (09:23)
[2018-01-28] MEDS ORDERED: NEBIVOLOL HCL 10 MG TABLET PO SCH (10:00)
[2018-01-28] MEDS ORDERED: DESIPRAMINE HCL 50 MG TABLET PO SCH (10:00)
[2018-01-28] MEDS ORDERED: POTASSIUM CHLORIDE 10 MEQ CAPSULE.ER PO SCH (10:00)
[2018-01-28] MEDS ORDERED: LOSARTAN POTASSIUM 50 MG TABLET PO SCH (10:00)
[2018-01-28 10:30] LABS: ABSOLUTE LYMPHOCYTES (AUTO) 1.9 10^3/uL (0.5-4.7); ABSOLUTE MONOCYTES (AUTO) 0.5 10^3/uL (0.1-1.4); ABSOLUTE NEUT (AUTO) 5.5 10^3/uL (1.7-8.2); BASOPHILS % (AUTO) 0.4 % (0-2); EOSINOPHILS % (AUTO) 0.1 % (0-6); HEMATOCRIT 26.5 % (36.0-47.0); LYMPHOCYTES % (AUTO) 23.6 % (13-45); MEAN CORPUSCULAR HEMOGLOBIN 33.7 pg (27.0-33.4); MEAN CORPUSCULAR HGB CONC 33.8 g/dL (32.0-36.0); MEAN CORPUSCULAR VOLUME 100 fl (80-97); MONOCYTES % (AUTO) 6.5 % (3-13); PLATELET COUNT 268 10^3/uL (150-450); RED BLOOD COUNT 2.66 10^6/uL (3.72-5.28); RED CELL DISTRIBUTION WIDTH 16.2 % (11.5-14.0); SEGMENTED NEUTROPHILS % (AUTO) 69.4 % (42-78); TOTAL CELLS COUNTED % (AUTO) 100 %; WHITE BLOOD COUNT 7.9 10^3/uL (4.0-10.5)
[2018-01-28 10:42] LABS: ANION GAP 10 (5-19); BLOOD UREA NITROGEN 14 mg/dL (7-20); CALCIUM 9.1 mg/dL (8.4-10.2); CARBON DIOXIDE 30 mmol/L (22-30); CHLORIDE 99 mmol/L (98-107); GLUCOSE 161 mg/dL (75-110); PHOSPHORUS 3.6 mg/dL (2.5-4.5); POTASSIUM 3.5 mmol/L (3.6-5.0); SODIUM 138.9 mmol/L (137-145)
--- NOTE | 2018-01-28 13:35 | PDOC PROGRESS REPORT ---
Subjective Progress Note for:: 01/28/18 Subjective:: patient comfortable, no c/o Reason For Visit: RIGHT BREAST CANCER Physical Exam Vital Signs: Temp Pulse Resp BP Pulse Ox 98.4 F 73 16 126/65 H 96 01/28/18 11:02 01/28/18 11:02 01/28/18 11:02 01/28/18 11:02 01/28/18 11:02 Intake & Output 01/27/18 01/28/18 01/29/18 06:59 06:59 06:59 Intake Total 0 4240 1200 Output Total 1252 510 Balance 0 2988 690 Weight 102.97 kg 104.8 kg General appearance: PRESENT: no acute distress Respiratory exam: PRESENT: clear to auscultation elmer Cardiovascular exam: PRESENT: RRR GI/Abdominal exam: PRESENT: soft Skin exam: PRESENT: other - Chest: bilateral masetctomy flaps are healthy, wounds C/D/I, 2 MARIA ESTHER drains on the R and 1 MARIA ESTHER drain on the left filled with seroussanguinous fluid Results Laboratory Results: 01/28/18 10:15 01/28/18 10:15 01/28/18 01/28/18 10:15 10:15 WBC 7.9 RBC 2.66 L Hgb 9.0 L Hct 26.5 L MCV 100 H MCH 33.7 H MCHC 33.8 RDW 16.2 H Plt Count 268 Seg Neutrophils % 69.4 Lymphocytes % 23.6 Monocytes % 6.5 Eosinophils % 0.1 Basophils % 0.4 Absolute Neutrophils 5.5 Absolute Lymphocytes 1.9 Absolute Monocytes 0.5 Absolute Eosinophils 0.0 Absolute Basophils 0.0 Sodium 138.9 Potassium 3.5 L Chloride 99 Carbon Dioxide 30 Anion Gap 10 BUN 14 Creatinine 0.87 Est GFR ( Amer) > 60 Est GFR (Non-Af Amer) > 60 Glucose 161 H Calcium 9.1 Phosphorus 3.6 Magnesium 1.8 Assessment & Plan - Diagnosis (1) Breast cancer Qualifiers: Laterality: right Is this a current diagnosis for this admission?: Yes - Plan Summary Plan Summary: A/ POD#1 after R MRM and L Simple mastectomy VSS, AF minimal pain Blood work WNL PE: skin flaps of mastectomy healthy, wounds intact Moderate serosanguinous drainage from each of the 3 MARIA ESTHER drains (ranging 40-60 mL) P/ Home today Resume regular diet and medications Tomorrow resume all your preop activities with below exception: No driving until cleared by MD Can use upper extremities as usual, avoid strenuous activities or carrying weights > 5 pounds x 1 week, When cleared by Dr. Hemphill the patient can increase the weight to be carried by each arm Shower only lower part of the body: protect upper body (breast surgery area) with plastic bag and towel Can take a bath only with permission of Dr. Joby MAYO drain care as per routine: for each drain, empty daily, record amount and drain number on a piece of paper with date, and bring it to the office clinic No wound care needed Replace drain sponges as needed Tylenol/Aleve as needed for pain Miralax as needed for constipation Follow up in the Surgery office next week on Thursday call for appt.
[2018-01-28 13:46] VITALS: BP 132/57
--- NOTE | 2018-01-28 23:56 | DISCHARGE SUMMARY E ---
Discharge Summary NAME: CONNIE DE ANDA : 1950 AGE: 68Y ADMITTED: 01/27/2018 DISCHARGED: 01/28/2018 FINAL DIAGNOSIS: RIGHT BREAST CANCER. PROCEDURE: Right modified radical mastectomy and left simple mastectomy on 01/27. COMPLICATIONS: None. INDICATIONS AND FINDINGS: A 68-year-old female with stage 3 right breast cancer metastatic to the right axillary lymph nodes. This was exposed to neoadjuvant chemoradiation therapy who was taken to surgery on 01/27 to undergo a modified radical mastectomy on the right as well as a simple mastectomy on the left, as requested by the patient. The procedure was uneventful without complications. The patient was transferred to the floor. Her postoperative course was unremarkable without complications. Patient was able to tolerate po well. Blood work within normal limits. PHYSICAL EXAMINATION: Unremarkable with skin flaps of both mastectomy sites healthy and wounds clean, dry and intact. The patient has drains, 2 on the right, 1 on the left draining serosanguineous fluid in the range of 40 to 60 mL over a 24 hour period. DISCHARGE INSTRUCTIONS: The patient was discharged on 01/28/18. She was given a followup appointment with Dr. Hemphill next week on Thursday. She is instructed to use both upper extremities normally but without strenuous activities and no heavy lifting more than 5 pounds per each extremity until cleared by Dr. Hemphill. The patient is to empty all 3 Holden-Corral drains once or more than once a day as needed, record the amount per day with date, and bring the output record to the office. Tylenol only for pain. Resume all previous medications. No wound care needed. The patient can shower the lower portion of the body, while protecting the upper body where the mastectomies were done with a plastic bag and a towel. The patient should resume all the preadmission medications. Patient is not allowed to drive until cleared with Dr. Hemphill. DICTATING PHYSICIAN: DINORA WATERMAN M.D. [id number] PHY#: [id number] ID: [id number] JOB#: [id number] ACCT: [id number] cc:Nan TAPIA M.D. > [facility]
== END 2018-01-28 16:17 | disposition home or self-care (01) ==
LOC: OROUT 05:32 → 5 14:15 → OROUT 01-28 16:17
PROVIDERS: ATTEND Surgery
DX: C50.812 Malignant neoplasm of overlapping sites of left female breast (principal); C50.811 Malignant neoplasm of overlapping sites of right female breast; C77.3 Secondary and unspecified malignant neoplasm of axilla and upper limb lymph nodes; Z17.0 Estrogen receptor positive status [ER+]; E03.9 Hypothyroidism, unspecified; E11.9 Type 2 diabetes mellitus without complications; I10 Essential (primary) hypertension; M19.90 Unspecified osteoarthritis, unspecified site; L72.3 Sebaceous cyst; Z79.899 Other long term (current) drug therapy; Z79.84 Long term (current) use of oral hypoglycemic drugs; Z79.1 Long term (current) use of non-steroidal anti-inflammatories (NSAID); Z01.818 Encounter for other preprocedural examination
CPT/HCPCS: 93005; 36415 ×2; 82962; 83735; 84100; 84132; 85025; 85027; 80048 ×2; 88307 ×2; 88309 ×2; 94799; 93010; 19307; 19303; A9270 ×14; J2250; J0690 ×2; J1100; J3010; J1170; J0330; J2405; J3490; J7120; J2704; J0131 ×2; 404

== ENCOUNTER → 2018-02-26 | Outpatient (CLI) | payer MEDICAID, MEDICARE ==
--- NOTE | 2018-02-26 16:06 | XCELERA REPORT ---
[address] [facility] [address] Lower Extremity Venous Evaluation Procedure: Color flow and duplex imaging bilaterally of the veins of the lower extremities as well as the Common Femoral veins. Right Sided Venous Evaluation Normal vessel filling wall to wall, compression and augmentation as well as Colour flow down to the infrageniculate veins. Left Sided Venous Evaluation Normal vessel filling wall to wall, compression and augmentation as well as Colour flow down to the infrageniculate veins. Interpretation Summary No duplex evidence of DVT or obstruction in the bilateral lower extremities. Name: CONNIE DE ANDA Age: 68 yrs Gender: Female : 1950 Patient Status: Outpatient Patient Location: Study Date: 02/26/2018 02:33 PM Reason For Study: BLE SWELLING Ordering Physician: JAIME KEARNEY Performed By: Sidney Jolly : JAIME KEARNEY > Victorino Hess
== END ==
LOC: SP 14:07
PROVIDERS: ATTEND Internal Medicine
DX: R22.43 Localized swelling, mass and lump, lower limb, bilateral (principal)
CPT/HCPCS: 93970

== ENCOUNTER → 2018-03-10 | Outpatient (CLI) | payer MEDICAID, MEDICARE ==
--- NOTE | 2018-03-10 15:03 | WOMENS IMAGING REPORT ---
EXAM DESCRIPTION: BONE DENSITY HIP/SPINE COMPLETED DATE/TIME: 03/10/2018 1:22 pm REASON FOR STUDY: OSTEOPOROSIS G45.9 TRANSIENT CEREBRAL ISCHEMIC ATTACK, UNSPECIFIED M81.0 AGE-REL ATED OSTEOPOROSIS W/O CURRENT PATHOLOGICAL FRAC COMPARISON: None. TECHNIQUE: Dual-Energy X-ray Absorptiometry (DEXA) of the AP Spine and Hip. LIMITATIONS: None. FINDINGS: LUMBAR SPINE: The bone mineral density (BMD) measured from L1-L4 in the AP projection correlates with a T-score of +1.8, which is normal as defined by the World Health Organization. HIP: The bone mineral density (BMD) measured in the left femoral neck at the hip correlates with a T-score of +2.3, which is normal as defined by the World Health Organization. IMPRESSION: 1. LUMBAR SPINE: Normal 2. HIP: Normal COMMENT: The World Health Organization defines low BMD as follows: T-score: Normal: Greater than -1.0 Osteopenia: Between -1.0 and -2.5 Osteoporosis: Less than -2.5 without fractures Established osteoporosis: Less than -2.5 with fractures In general, you may wish to consider: Diagnosis Treatment Follow-up DEXA Normal BMD Prevention 2-3 years Osteopenia Prevention/Therapy 1-2 years Osteoporosis Therapy Yearly TECHNICAL DOCUMENTATION: JOB ID: [id number] [employer]- All Rights Reserved Reading location - IP/workstation name: [email or web address]
--- NOTE | 2018-03-10 15:54 | RADIOLOGY REPORT (SQ) ---
EXAM DESCRIPTION: CAROTID DOPPLER COMPLETED DATE/TIME: 03/10/2018 3:30 pm REASON FOR STUDY: TIA G45.9 TRANSIENT CEREBRAL ISCHEMIC ATTACK, UNSPECIFIED M81.0 AGE-RELATED OSTE OPOROSIS W/O CURRENT PATHOLOGICAL FRAC COMPARISON: None. TECHNIQUE: Grayscale ultrasound, Doppler velocity and spectra, and color Doppler images acquired of the extra-cranial carotid and vertebral arteries. Images stored on PACS. LIMITATIONS: None. FINDINGS: RIGHT CAROTID CCA Velocities: Within normal limits. Peak systolic velocity 0.94 m/sec ICA Velocities Peak systolic 0.48 m/s. End diastolic 0.13 m/s. Proximal ICA/CCA peak systolic ratio 0.64. Spectra normal. No significant plaque. LEFT CAROTID CCA Velocities: Within normal limits. Peak systolic velocity 0.88 m/sec ICA Velocities Peak systolic 0.56 m/s. End diastolic 0.17 m/s. Proximal ICA/CCA peak systolic ratio 1.0. Spectra normal. No significant plaque. VERTEBRAL ARTERIES: Antegrade flow. Normal waveforms. SUBCLAVIAN ARTERIES: Not evaluated OTHER: No other significant finding. IMPRESSION: NO HEMODYNAMICALLY SIGNIFICANT STENOSIS. COMMENT: Quality ID #[id number]: Velocity criteria are extrapolated from the diameter data as defined by t he Society of Radiologists in Ultrasound Consensus Conference. Radiology 2003: 229; 340-346. TECHNICAL DOCUMENTATION: JOB ID: [id number] [employer]- All Rights Reserved Reading location - IP/workstation name: [email or web address]
== END ==
LOC: WI 11:00
PROVIDERS: ATTEND Internal Medicine Hematology & Oncology
DX: G45.9 Transient cerebral ischemic attack, unspecified (principal); M81.0 Age-related osteoporosis without current pathological fracture; Z79.811 Long term (current) use of aromatase inhibitors
CPT/HCPCS: 77080; 93880

== ENCOUNTER → 2018-05-24 | Outpatient (CLI) | payer MEDICARE ==
[2018-05-24 13:20] LABS: ALANINE AMINOTRANSFERASE 15 U/L (9-52); ALBUMIN 3.9 g/dL (3.5-5.0); ALKALINE PHOSPHATASE 57 U/L (38-126); ASPARTATE AMINO TRANSFERASE 28 U/L (14-36); BILIRUBIN,DIRECT 0.2 mg/dL (0.0-0.4); BILIRUBIN,TOTAL 0.4 mg/dL (0.2-1.3); TOTAL PROTEIN 7.7 g/dL (6.3-8.2)
== END ==
LOC: OD 11:42
PROVIDERS: ATTEND Radiology Radiation Oncology
DX: Z79.899 Other long term (current) drug therapy (principal)
CPT/HCPCS: 36415; 80076

== ENCOUNTER → 2018-06-24 | Outpatient (CLI) | payer MEDICAID, MEDICARE ==
--- NOTE | 2018-06-24 16:19 | RADIOLOGY REPORT (SQ) ---
EXAM DESCRIPTION: NM MUGA REST COMPLETED DATE/TIME: 06/24/2018 3:43 pm REASON FOR STUDY: Z08 ENCNTR FOR FOLLOW-UP EXAM AFTER TRTMT FOR MALIGNANT NEOPLASM Z51.11 ENCOUNTER FOR ANTINEOPLASTIC CHEMOTHERAPY Z13.6 ENCOUNTER FOR SCREENING FOR CARDIOVASCULAR DISORDERS Z08 ENC NTR FOR FOLLOW-UP EXAM AFTER TRTMT FOR MALIGNANT NEOP COMPARISON: 12/11/2017. RADIONUCLIDE AND DOSE: 25.4 mCi technetium 99m labeled red blood cells The route of agent administration: Intravenous TECHNIQUE: Following administration of the radionuclide, gated images of the heart are obtained in t hree projections. Left ventricular functional analysis performed. LIMITATIONS: None. FINDINGS: LEFT VENTRICULAR FUNCTION: EJECTION FRACTION: 70%. END-DIASTOLIC VOLUME: 80 mL. END-SYSTOLIC VOLUME: 19 mL. WALL MOTION: No focal wall motion abnormalities. OTHER: No other significant finding. IMPRESSION: NORMAL CARDIAC MUGA STUDY. NORMAL LEFT VENTRICULAR FUNCTION WITH VALUES ABOVE. TECHNICAL DOCUMENTATION: JOB ID: [id number] [employer]- All Rights Reserved Reading location - IP/workstation name: [email or web address]
== END ==
LOC: RAD 06-22 10:55
PROVIDERS: ATTEND Internal Medicine Hematology & Oncology
DX: Z08 Encounter for follow-up examination after completed treatment for malignant neoplasm (principal); Z13.6 Encounter for screening for cardiovascular disorders
CPT/HCPCS: 78472; A9560; Q9969

== ENCOUNTER → 2018-07-21 | Outpatient (CLI) | payer MEDICARE, MEDICAID ==
[~2018-07-21] MED LIST changes: -CEFAZOLIN 1 GM/D5W RTU 1 GM/50 ML RTUPB IV PRN; -LACTATED RINGERS 1000 ML IV PRN; -LIDOCAINE 0.5% INJ-PF (5 MG/ML) 50 ML SDV SUBCUT PRN; +MAGNESIUM SULFATE/D5W 2 GM/200 ML RTUPB IV ONE; +NORMAL SALINE 250 ML IV PRN
[2018-07-21] MEDS: MAGNESIUM SULFATE 1 GM/D5W 100 ML IV SCH ×2 (13:35→14:43)
[2018-07-21 16:07] VITALS: BP 148/70
== END ==
LOC: ASU 12:53
PROVIDERS: ATTEND Internal Medicine Hematology & Oncology
PROC: 3E043GC Introduction of Other Therapeutic Substance into Central Vein, Percutaneous Approach (ICD-10-PCS; principal; 2018-07-21)
DX: E83.42 Hypomagnesemia (principal)
CPT/HCPCS: 96365; 96366; J3475

== ENCOUNTER 2018-07-29 10:35 | Outpatient (CLI) | payer MEDICARE ==
[2018-07-29] MEDS ORDERED: NORMAL SALINE 250 ML IV PRN (10:54)
[2018-07-29 11:08] VITALS: BP 139/61
[2018-07-29] MEDS: MAGNESIUM SULFATE 1 GM/D5W 100 ML IV PRN ×2 (11:09→12:09)
== END 2018-07-29 13:27 | disposition home or self-care (01) ==
LOC: II 10:35 → 5TH 10:36 → II 13:27
PROVIDERS: ATTEND Internal Medicine Hematology & Oncology
PROC: 3E043GC Introduction of Other Therapeutic Substance into Central Vein, Percutaneous Approach (ICD-10-PCS; principal; 2018-07-29)
DX: E83.42 Hypomagnesemia (principal)
CPT/HCPCS: 96365; 96366; J3475; 96367

== ENCOUNTER 2018-08-10 13:02 | Outpatient (CLI) | payer MEDICARE, MEDICAID ==
[~2018-08-10 13:02] MED LIST changes: -MAGNESIUM SULFATE/D5W 2 GM/200 ML RTUPB IV ONE
[2018-08-10] MEDS ORDERED: NORFLURANE/PENTAFLUOROPROPANE 30 ML SPRAY TP ONE (13:20)
[2018-08-10] MEDS: MAGNESIUM SULFATE 1 GM/D5W 100 ML IV PRN ×2 (13:39→14:33)
[2018-08-10 13:44] VITALS: BP 131/78
== END 2018-08-10 15:41 | disposition home or self-care (01) ==
LOC: II 13:02 → 5TH 14:19 → II 15:41
PROVIDERS: ATTEND Internal Medicine Hematology & Oncology
PROC: 3E043GC Introduction of Other Therapeutic Substance into Central Vein, Percutaneous Approach (ICD-10-PCS; principal; 2018-08-10)
DX: E83.42 Hypomagnesemia (principal)
CPT/HCPCS: 96365; 96366; 96374; J3475; J3490; 96367

== ENCOUNTER 2018-09-01 07:44 | Outpatient (CLI) | payer MEDICARE, MEDICAID ==
[2018-09-01] MEDS ORDERED: NORMAL SALINE 250 ML IV PRN (07:51)
[2018-09-01] MEDS: MAGNESIUM SULFATE 1 GM/D5W 100 ML IV SCH ×2 (08:25→09:31)
[2018-09-01 08:37] VITALS: BP 142/75
== END 2018-09-01 10:45 | disposition home or self-care (01) ==
LOC: II 07:44 → 5TH 07:45 → II 10:45
PROVIDERS: ATTEND Internal Medicine Hematology & Oncology
PROC: 3E043GC Introduction of Other Therapeutic Substance into Central Vein, Percutaneous Approach (ICD-10-PCS; principal; 2018-09-01)
DX: E83.42 Hypomagnesemia (principal)
CPT/HCPCS: 96367; J3475; 96365; 96366

== ENCOUNTER → 2018-09-09 | Outpatient (CLI) | payer MEDICARE, MEDICAID ==
--- NOTE | 2018-09-09 16:17 | RADIOLOGY REPORT (SQ) ---
EXAM DESCRIPTION: NM MUGA REST COMPLETED DATE/TIME: 09/09/2018 3:55 pm REASON FOR STUDY: ENCNTR FOR FOLLOW-UP EXAM AFTER TRTMT FOR MALIGNANT NEOPLASM Z08 ENCNTR FOR FOLLO W-UP EXAM AFTER TRTMT FOR MALIGNANT NEOP COMPARISON: None. RADIONUCLIDE AND DOSE: 24.9 mCi technetium 99m labeled red blood cells The route of agent administration: Intravenous TECHNIQUE: Following administration of the radionuclide, gated images of the heart are obtained in t hree projections. Left ventricular functional analysis performed. LIMITATIONS: None. FINDINGS: LEFT VENTRICULAR FUNCTION: EJECTION FRACTION: 75%. END-DIASTOLIC VOLUME: 84 mL. END-SYSTOLIC VOLUME: 17 mL. WALL MOTION: No focal wall motion abnormalities. OTHER: No other significant finding. IMPRESSION: NORMAL CARDIAC MUGA STUDY. NORMAL LEFT VENTRICULAR FUNCTION WITH VALUES ABOVE. TECHNICAL DOCUMENTATION: JOB ID: [id number] [employer]- All Rights Reserved Reading location - IP/workstation name: [email or web address]
== END ==
LOC: RAD 13:48
PROVIDERS: ATTEND Internal Medicine Hematology & Oncology
DX: Z79.899 Other long term (current) drug therapy (principal)
CPT/HCPCS: 78472; A9560; Q9969

== ENCOUNTER 2018-11-29 09:46 | Emergency (ER) | payer MEDICARE ==
[2018-11-29] MEDS ORDERED: ASPIRIN 81 MG TABLET, CHEWABLE PO ONE (09:52)
[2018-11-29] MEDS ORDERED: GLUCAGON,HUMAN RECOMB 1 MG INJ ONE (09:59)
[2018-11-29] MEDS ORDERED: GLUCAGON,HUMAN RECOMB 1 MG INJ IM ONE (10:01)
[2018-11-29] MEDS ORDERED: EPINEPHRINE INJ 1 MG/10 ML DISP.SYRIN IV ONE ×4 (10:04→10:18)
[2018-11-29] MEDS ORDERED: SODIUM BICARBONATE 8.4% INJ 50 MEQ/50 ML DISP.SYRIN IV ONE (10:08)
[2018-11-29] MEDS ORDERED: NALOXONE HCL INJ 2 MG/2 ML DISP.SYRIN IV ONE (10:14)
[2018-11-29] MEDS ORDERED: SODIUM BICARBONATE 8.4% INJ 50 MEQ/50 ML DISP.SYRIN ONE ×2 (10:18→14:18)
[2018-11-29 13:03] VITALS: BP 161/22
--- NOTE | 2018-11-29 13:40 | ER Document Report ---
ED General - General Chief Complaint: Cardiac Arrest Stated Complaint: WEAKNESS Time Seen by Provider: 11/29/18 09:53 Primary Care Provider: EMMANUELLE BRAGG MD [Primary Care Provider] - Follow up as needed Mode of Arrival: Medic Information source: Friend, Emergency Med Personnel TRAVEL OUTSIDE OF THE [place] IN LAST 30 DAYS: No - HPI Notes: Patient is a 68-year-old female history of hypertension breast cancer currently undergoing chemotherapy and diabetes presents to the emergency department by EMS and went into cardiac arrest immediately after arrival. By report, the patient has had abdominal pain for over a week and the family also reported her describing chest pain and difficulty breathing over the last 2 days. The p atient apparently was going in to have a barium swallow study or upper GI study performed and was getting in her car when her pain and dyspnea worsened and EMS was called. Initially the patient was conversant for EMS, but she was dyspneic and her capnometry was only 5 despite the patient being still conversant. Blood sugar was over 100 per EMS and patient was given Zofran 4 mg IV prior to arrival. Upon arrival, the patient was described as having what looked like brief seizure-like activity and then quit breathing. She was on the car lubricator which I observed her to have what appeared to be a bradycardia with a rate of 40 with possible third-degree heart block. I quickly was summoned into the room and the patient was found to be pulseless with extremely agonal respirations and [id number] resuscitation and CPR was undertaken immediately. Patient already had an IV established peripherally, and pt was given NS bolus and approp cardiac resuscitation medications. Patient's left upper chest MediPort was accessed for further resuscitation efforts. Repeat blood sugar was 159. - Related Data Allergies/Adverse Reactions: adhesive tape Allergy (Verified 01/27/18 06:17) RASH, SKIN IRRITATION Past Medical History - General Information source: Relative, Emergency Med Personnel Cannot obtain history due to: Intubated - Social History Smoking Status: Never Smoker Frequency of alcohol use: None Drug Abuse: None Lives with: Family Family History: Malignancy Patient has suicidal ideation: No Patient has homicidal ideation: No - Past Medical History Cardiac Medical History: Reports: Hx Hypertension Denies: Hx Coronary Artery Disease, Hx Heart Attack Pulmonary Medical History: Reports: Hx Sleep Apnea Denies: Hx Asthma, Hx Bronchitis, Hx COPD, Hx Pneumonia Neurological Medical History: Denies: Hx Cerebrovascular Accident, Hx Seizures Endocrine Medical History: Reports: Hx Diabetes Mellitus Type 2, Hx Hypothyroidism Renal/ Medical History: Denies: Hx Peritoneal Dialysis Malignancy Medical History: Reports: Hx Breast Cancer GI Medical History: Reports: Hx Gastroesophageal Reflux Disease, Hx Ulcer Musculoskeletal Medical History: Reports Hx Arthritis Past Surgical History: Reports: Hx Cholecystectomy, Other - Breast biopsy. Denies: Hx Pacemaker - Immunizations Hx Diphtheria, Pertussis, Tetanus Vaccination: Yes Hx Pneumococcal Vaccination: 03/01/09 Review of Systems - Review of Systems -: Yes ROS unobtainable due to patient's medical condition Physical Exam - Vital signs Vitals: Resp 13 11/29/18 09:56 - Notes Notes: PHYSICAL EXAMINATION: GENERAL: Patient unconscious and unresponsive on my evaluation, with initial agonal respirations at quickly subsided to full apnea. HEAD: Atraumatic, normocephalic. EYES: Pupils equal round and reactive to light, conjunctiva are normal. ENT: Nares patent, oropharynx clear without exudates. Dry mucous membranes. NECK: Normal range of motion, supple without lymphadenopathy. Trachea midline. LUNGS: Breath sounds clear to auscultation bilaterally and equal with bag valve mask respirations. No rales. HEART: No cardiac sounds. Chest wall postoperative changes noted without evidence for obvious infection or breakdown. ABDOMEN: Somewhat distended through the upper abdomen. Unable to elicit any obvious tenderness. Female : deferred Musculoskeletal: Peripheral cyanosis noted. No musculoskeletal irregularities appreciated. NEUROLOGICAL: Unconscious and unresponsive. SKIN: Cool, diaphoretic Course - Re-evaluation Re-evalutation: 11/29/18 13:45 IV fluids and CPR were continued throughout the resuscitation attempt. Patient initially was in PEA and she was given epinephrine 1 mg every 5 minutes throughout the resuscitation attempt. The patient was also given 2 A of sodium bicarb and was given Narcan. The patient was also given glucagon 1 mg IV for possible reversal of her beta-girma medication. The patient went from PEA with a normal rate, but never recovered a consistent pulse. Patient was intubated by myself on first attempt using a 7.5 endotracheal tube and good breath sounds were noted in both lung bull. The patient had initial good color change on the capnometry, and capnography showed an appropriate waveform but the values were low consistently throughout. The low capnometry readings in both the prehospital setting when the patient was conversant, as well as the capnography readings during the resuscitation attempt all raise a question of either overwhelming sepsis versus pulmonary embolus. At 2 times during the resuscitation I performed at bedside ultrasound on the patient which confirmed no cardiac activity. After continued resuscitation attempts per ACLS standard, the patient was noted to go into asystole and the resuscitative attempts were discontinued. Discussion was undertaken with Dr. Bragg, who is the patient's oncologist, and she agreed to sign the certificate. Patient reportedly had a MUGA scan 2 months ago which showed excellent ejection fraction of 75% and no other abnormality. Regarding possible cause of , sepsis versus pulmonary embolus are possibilities. One questions also the patient's abdominal pain for over a week and the patient's chest pain and dyspnea the last 2 days as other contributory causes. The patient also had recently finished chemotherapy. Family was consoled. I discussed with family further. I do not suspect foul play or abuse. Family agreed also that the patient did not need an autopsy and requested tubes and lines to be removed prior to their viewing the patient. 11/29/18 13:51 - Vital Signs Vital signs: Temp Pulse Resp BP Pulse Ox 26 H 161/22 H 11/29/18 10:19 11/29/18 10:19 - Laboratory Laboratory results interpreted by me: 11/29/18 09:58 POC Glucose 159 H Critical Care Note - Critical Care Note Total time excluding time spent on procedures (mins): 34 Discharge - Discharge Clinical Impression: Cardiac arrest Breast cancer Qualifiers: Breast location: unspecified site of breast Estrogen receptor status: unspecified Patient sex: female Laterality: unspecified laterality Qualified Cod e(s): C50.919 - Malignant neoplasm of unspecified site of unspecified female breast Disposition: Referrals: EMMANUELLE BRAGG MD [Primary Care Provider] - Follow up as needed
[2018-11-29] MEDS ORDERED: EPINEPHRINE INJ 1 MG/10 ML DISP.SYRIN ONE (14:18)
[2018-11-29] MEDS ORDERED: ATROPINE SULFATE INJ 1 MG/10 ML DISP.SYRIN IV ONE (14:18)
== END 2018-11-29 16:05 | disposition expired ==
LOC: ER 09:46
DX: I46.9 Cardiac arrest, cause unspecified (principal); C50.919 Malignant neoplasm of unspecified site of unspecified female breast; R53.1 Weakness; I10 Essential (primary) hypertension; E11.9 Type 2 diabetes mellitus without complications; E03.9 Hypothyroidism, unspecified; Z90.49 Acquired absence of other specified parts of digestive tract
CPT/HCPCS: 36591; 99291; 92950; 96374; 96375; 82962; 31500; J0461; J0171; J1610; J3490; J2310